=== PATIENT | male | born 1980 | race Asian ===

== ENCOUNTER 2024-01-20 15:30 | Inpatient (IN) ==
--- NOTE | 2024-01-20 16:43 | XRay Report ---
EXAM: Chest x-ray one-view not portable CLINICAL HISTORY: Rule out pneumonia, recent travel PRIORS: None TECHNIQUE: PA view chest FINDINGS: Lung volumes are diminished. Streaky opacity present in the right upper lobe with moderate right pleural effusion and possible hazy opacity at the right lung base. Small left pleural effusion also noted. Heart size is normal. No pneumothorax. Trachea is patent. Osseous structures demonstrate no acute abnormality. No radiopaque foreign body. IMPRESSION: Opacification in the right upper lobe, likely representing pneumonia, with bilateral pleural effusions. If clinically appropriate, follow-up chest radiograph could be considered in 6 to 8 weeks to ensure radiographic resolution. Electronically signed by Estephania Benitez 01-20-2024 4:43 PM
[2024-01-20 18:07] LABS: Hematocrit (blood only) 42.7 % (42.0-52.0); Hemoglobin 14.6 g/dl (14.0-18.0); Mean Corpuscular Hemoglobin 28.9 pg (25.0-34.0); Mean Corpuscular Hgb Conc 34.2 g/dL (32.0-36.0); Mean Corpuscular Volume 84.6 fL (80.0-100.0); Mean Platelet Volume 10.1 fL (9.4-12.4); Platelet Count 278 K/uL (130-400); RDW Coefficient of Variation 12.4 % (11.5-14.5); RDW Standard Deviation 38.2 fL (36.4-46.3); Red Blood Count 5.05 M/uL (4.70-6.10); White Blood Count 7.12 K/ul (4.8-10.8)
--- NOTE | 2024-01-20 18:16 | Emergency Department Note ---
Impression & Plan Pneumonia, Anasarca, GERA (acute kidney injury), Pleural effusion, Hypoalbuminemia ED Provider Note NAME: DAVE LAGUERRE AGE: 44 SEX: M : 1980 ARRIVES VIA: Walk-In INFORMANT: Patient, ED PROVIDER(S): Bobo Vidal DO CHIEF COMPLAINT: Edema HPI: The patient is a 44-year-old male who recently returned from a flight from [place]. He started noticing about 5 days ago that he was swelling. He noticed swelling first in his hands and his legs. He then noticed swelling on his abdomen. He noticed facial swelling as well. The symptoms wax and wane. They sometimes get better once he has been standing for a while. He is also noticed a dry cough. He went to see his family doctor. He had some laboratory and radiographic studies including Dopplers of the lower extremities. Reportedly these were negative for DVT but the patient had a chest x-ray that showed fluid on his lungs so he was sent to the emergency department for further evaluation. ROS: See above HPI for pertinent positives & negatives. A total of 10 systems reviewed and were otherwise negative. PAST MEDICAL HISTORY: See Below PAST SURGICAL HISTORY: See Below FAMILY HISTORY: See Below SOCIAL HISTORY: See Below HOME MEDICATIONS: See Below ALLERGIES: See Below VITALS: See Below PHYSICAL EXAMINATION: GENERAL: Patient is awake alert in no acute distress patient is resting comfortably and showing no signs of anxiety EYES: The conjunctivae are clear. The pupils are round and reactive. There is facial plethora noted. EARS, NOSE, MOUTH AND THROAT: The nose is without any evidence of any deformity. NECK: The neck is nontender and supple. RESPIRATORY: The breath sounds are noted at both bases. There were rales at both bases. There was mild tachypnea and conversational dyspnea. CARDIOVASCULAR: Tachycardic and regular heart sounds were noted to auscultation. There is no definite murmur. GASTROINTESTINAL: The abdomen is soft and mildly distended. There is no guarding or rigidity appreciated. MUSCULOSKELETAL/EXTREMITIES: There is no evidence of gross deformity full range of motion is noted in the hips and shoulders. SKIN: There is bilateral lower extremity edema noted. Pulses were symmetric in both feet. NEUROLOGIC: Patient is awake alert and oriented x3 MEDICAL DECISION MAKING: The patient is a 44-year-old male who presented to the emergency department for an evaluation of swelling. The patient recently returned from [place]. Ever since that time he started noticing swelling which was in his extremities as well as his torso and his face. The patient was found to have signs of pneumonia on chest x-ray. It is possible an underlying infectious process exists. This may also be affecting his kidneys. The patient was treated with antibiotics. I discussed the patient's laboratory and radiographic studies with him. [facility] also [facility] have agreed to evaluate the patient in the emergency department for further management and disposition. Triage Nursing notes reviewed. Prior medical records reviewed Vital Signs: reviewed and remarkable for elevated blood pressure. Differential diagnosis: Reactive airway disease, pneumonia, pneumothorax, COPD, CHF, infections, cardiac ischemia, pulmonary embolism, musculoskeletal, gastrointestinal, as well as other pathologies. ER treatment provided: See below Diagnostics interpreted by me: ECG: EKG was obtained in the emergency department. My interpretation is sinus tachycardia at 114 bpm. There is no ectopy. Nonspecific ST depression with T wave abnormalities were noted. No previous tracings available. Cardiac Monitoring: An order was placed for continuous cardiac monitoring. The monitor shows a rate of 105/min with sinus tachycardia. Laboratory studies: As stated above and show below. Imaging studies: See below. Radiographic imaging was reviewed by myself Consultation(s): I discussed this case with Dr. Miramontes who [facility]. Past Med/Surg History Problem List (Updated 01/21/24 @ 01:50 by Bobo Vidal DO) Hyponatremia Pneumonia (Acute) Hypoalbuminemia (Acute) HLD (hyperlipidemia) Pleural effusion (Acute) GERA (acute kidney injury) (Acute) Anasarca (Acute) Surgical History No pertinent past surgical history Social History Smoking Status: Former smoker Tobacco Type: Cigarettes Cigarettes Per Day: 1-4; Smoking End Date: over 20 years ago; Second Hand Exposure: No; Do You Dip or Chew Tobacco: No; Tobacco Cessation Education Requested by Patient: No Hx Alcohol Use: Yes Hx Substance Use: No Preferred Language: Mexican Communication Ability: Effective Communication Ability Comment: pt has accent but has good yemeni Heeler Required: No Beliefs That Will Affect Care: None Current Living Situation: Family Current Living Situation Comment: lives with family Feels Safe at Home: Yes Safety Concerns: Feels Safe At This Time Assistive Devices: Glasses Allergies Allergies Allergy/AdvReac Type Severity Reaction Status Date / Time No Known Allergies Allergy Verified 10/25/23 10:14 Home Meds Home Medications Medication Instructions Recorded Confirmed rosuvastatin 20 mg tablet mg PO 10/25/23 10/25/23 Previous Rx's Medication Instructions Recorded amoxicillin 875 mg tablet 875 mg PO BID #20 tabs 10/25/23 Results & Data (ED) Vital Signs Vital Signs - 24 hr 01/20/24 15:53 01/20/24 18:27 01/20/24 19:36 Temperature 36.8 C Temperature Source Temporal Artery Scan Pulse Rate 117 H 108 H Pulse Rate [Finger] 102 H Respiratory Rate 20 22 Respiratory Effort / Characteristics Non-Labored Respiratory Depth Normal Blood Pressure 145/113 H Blood Pressure [Right Arm] 165/84 H Blood Pressure Mean 123 Blood Pressure Mean [Right Arm] 111 Pulse Oximetry 99 93 Oxygen Delivery Method Room Air Room Air Sepsis Recent Fever Within 48 Hours No Sepsis New/Unexplained Change in Mental Status N/A Sepsis Action Taken by Nursing No Action Required 01/20/24 21:17 Temperature Temperature Source Pulse Rate Pulse Rate [Finger] 102 H Respiratory Rate 22 Respiratory Effort / Characteristics Respiratory Depth Blood Pressure Blood Pressure [Right Arm] 166/95 H Blood Pressure Mean Blood Pressure Mean [Right Arm] 118 Pulse Oximetry 92 Oxygen Delivery Method Room Air Sepsis Recent Fever Within 48 Hours Sepsis New/Unexplained Change in Mental Status Sepsis Action Taken by Long-Term Medications Current Medication List: was personally reviewed by me Laboratory Data Attestation: I reviewed the patient's lab results. 01/20/24 17:40 01/20/24 17:40 Lab Results 01/20/24 01/20/24 Range/Units 17:40 18:54 WBC 7.12 (4.8-10.8) K/ul RBC 5.05 (4.70-6.10) M/uL Hgb 14.6 (14.0-18.0) g/dl Hct 42.7 (42.0-52.0) % MCV 84.6 (80.0-100.0) fL MCH 28.9 (25.0-34.0) pg MCHC 34.2 (32.0-36.0) g/dL RDW Std Deviation 38.2 (36.4-46.3) fL RDW Coeff of Sachi 12.4 (11.5-14.5) % Plt Count 278 (130-400) K/uL MPV 10.1 (9.4-12.4) fL Immature Gran % (Auto) 0.1 % Neut % (Auto) 90.4 % Lymph % (Auto) 5.6 % [place] % (Auto) 3.9 % Eos % (Auto) 0.0 % Baso % (Auto) 0.0 % Neut # (Auto) 6.43 (1.40-6.50) K/uL Lymph # (Auto) 0.40 L (1.20-3.40) K/uL [place] # (Auto) 0.28 (0.11-0.59) K/uL Eos # (Auto) 0.00 (0.00-0.50) K/uL Baso # (Auto) 0.00 (0.00-0.20) K/uL Immature Gran # (Auto) 0.01 (0.01-0.20) K/uL PT 10.2 (9.0-12.0) Seconds INR 0.9 (0.9-1.1) VBG pH 7.38 (7.36-7.41) VBG pCO2 38 (38-50) mmHg VBG pO2 37 mmHg VBG HCO3 23 mmol/L VBG O2 Saturation 65.3 % VBG Base Excess -2.3 mEq/L Sodium 135 L (136-145) mmol/L Potassium 4.0 (3.5-5.1) mmol/L Chloride 106 (98-107) mmol/L Carbon Dioxide 25 (21-32) mmol/L Anion Gap 4 (3-11) BUN 17 (6-23) mg/dl Creatinine 1.95 H (0.6-1.4) mg/dl Est Cr Clr Drug Dosing 55.1 ml/min eGFR 42.97 BUN/Creatinine Ratio 8.7 L (10-20) Glucose 89 (70-99(Fasting)) mg/dl Calcium 7.0 L (8.6-10.3) mg/dl Total Bilirubin 0.2 (0.2-1.0) mg/dl AST 42 H (13-39) U/L ALT 21 (7-52) U/L Alkaline Phosphatase 79 (34-104) U/L Troponin I High Sens 30.3 H (0-20) pg/ml C-Reactive Protein 5.50 H (0-0.5) mg/dl B-Natriuretic Peptide 33 (0-100) pg/ml Total Protein 3.9 L (6.0-8.3) gm/dl Albumin 1.6 L (3.4-5.0) gm/dl Globulin 2.3 L (2.5-4.0) gm/dl Albumin/Globulin Ratio 0.7 L (0.9-2) Procalcitonin 0.64 H (0-0.5) ng/ml SARS-CoV-2 (PCR) NEGATIVE (Negative) Influenza Type A (PCR) Negative (Neg) Influenza Type B (PCR) Negative (Neg) RSV (RT-PCR) Negative (Neg) Administered Medications Discontinued Medications Ceftriaxone Sodium (Rocephin) 2,000 mg in 50 mls @ 100 mls/hr IV NOW STA Stop: 01/20/24 18:32 Last Infusion: 01/20/24 20:02 Dose: Infused Documented By: Admin: 01/20/24 19:35 Dose: 100 mls/hr Documented By: JESSIE Ioversol (Optiray 320 125ml) 115 ml IV ONCE ONE Stop: 01/20/24 19:08 Last Admin: 01/20/24 19:08 Dose: 115 ml Documented By: EVA Imaging Data Attestation: I personally reviewed and interpreted this imaging study as follows: My Impression: 1 view chest x-ray was obtained in the emergency department. My interpretation is bilateral pleural effusions, final report below. CT of the chest was obtained in the emergency department. My interpretation is bilateral pleural effusions, there is no free air, final report below. Radiologist's Impression: Chest X-Ray 01/20/24 16:00 EXAM: Chest x-ray one-view not portable CLINICAL HISTORY: Rule out pneumonia, recent travel PRIORS: None TECHNIQUE: PA view chest FINDINGS: Lung volumes are diminished. Streaky opacity present in the right upper lobe with moderate right pleural effusion and possible hazy opacity at the right lung base. Small left pleural effusion also noted. Heart size is normal. No pneumothorax. Trachea is patent. Osseous structures demonstrate no acute abnormality. No radiopaque foreign body. IMPRESSION: Opacification in the right upper lobe, likely representing pneumonia, with bilateral pleural effusions. If clinically appropriate, follow-up chest radiograph could be considered in 6 to 8 weeks to ensure radiographic resolution. Electronically signed by Estephania Benitez 01-20-2024 4:43 PM Abdomen/Pelvis CT 01/20/24 17:58 Exam(s): CT ABDOMEN + PELVIS With Contrast IV Amt: 115 cc opti 320 EXAM: CT Abdomen and Pelvis With Intravenous Contrast CLINICAL HISTORY: Reason for exam: edema. TECHNIQUE: Axial computed tomography images of the abdomen and pelvis with intravenous contrast. CTDI is 24.05 mGy and DLP is 788.8 mGy-cm. Automated exposure control was utilized for the study. A dose lowering technique was utilized adhering to the principles of ALARA. CONTRAST: Patient received 115 cc Optiray 320 of IV contrast COMPARISON: Ultrasound from September 16, 2023 FINDINGS: Lung bases: See below. Pleural space: Moderate bilateral pleural effusions layering posteriorly measuring 5.7 cm on the left and 8.5 cm on the right with bibasilar atelectasis. ABDOMEN: Liver: The liver measures 15.5 cm with normal appearance. Gallbladder and bile ducts: Unremarkable. No calcified stones. No ductal dilation. Pancreas: Unremarkable. No mass. No ductal dilation. Spleen: Unremarkable. No splenomegaly. Adrenals: Unremarkable. No mass. Kidneys and ureters: Unremarkable. No solid mass. No hydronephrosis. Stomach and bowel: See below. PELVIS: Appendix: The appendix is normal. Bowel loops are nondilated. There are a few scattered gas fluid levels within nondilated large and small bowel suggest a mild ileus. No focal bowel wall inflammation is identified. Bladder: Unremarkable. No mass. Reproductive: Unremarkable as visualized. ABDOMEN and PELVIS: Intraperitoneal space: There is a small amount of free fluid throughout the abdomen and pelvis measuring 1 cm thick adjacent to the liver and 4 cm thick in the pelvis. No free air. Bones/joints: No acute fracture. No dislocation. Soft tissues: Unremarkable. Vasculature: The portal vein is patent and nondilated measuring 14 mm. Lymph nodes: Unremarkable. No enlarged lymph nodes. IMPRESSION: 1. There is a small amount of free fluid throughout the abdomen and pelvis measuring 1 cm thick adjacent to the liver and 4 cm thick in the pelvis. 2. The appendix is normal. Bowel loops are nondilated. There are a few scattered gas fluid levels within nondilated large and small bowel suggest a mild ileus. No focal bowel wall inflammation is identified. 3. Moderate bilateral pleural effusions layering posteriorly measuring 5. 7 cm on the left and 8.5 cm on the right with bibasilar atelectasis. Electronically signed by: Jerome Ramsey MD 01/20/24 21:14 PM Chest CTA 01/20/24 17:58 Exam(s): CTA CHEST IV Amt: 115 ml optiray 320 EXAM: CT Angiography Chest With Intravenous Contrast CLINICAL HISTORY: Reason for exam: PE. TECHNIQUE: Axial computed tomographic angiography images of the chest with intravenous contrast. CTDI is 11.87 mGy and DLP is 5.94 mGy-cm. Automated exposure control was utilized for the study. A dose lowering technique was utilized adhering to the principles of ALARA. MIP reconstructed images were created and reviewed. COMPARISON: Chest x-ray from January 20, 2024 FINDINGS: Pulmonary arteries: Unremarkable. No pulmonary embolism. 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 The remainder the thoracic aorta is nondilated. There is no aneurysm or dissection. Lungs: See below. Pleural space: Moderate bilateral pleural effusions layering posteriorly measuring 6 cm on the left and 8.5 cm on the right. There is associated bibasilar atelectasis as well as streaky infiltrate in the right middle lobe suspicious for pneumonia. Heart: Unremarkable. No cardiomegaly. No significant pericardial effusion. No evidence of RV dysfunction. Bones/joints: No acute fracture. No dislocation. Soft tissues: Unremarkable. Lymph nodes: Unremarkable. No enlarged lymph nodes. Intraperitoneal space: Small amount of free fluid is seen within the upper abdomen measuring 1 cm thick anterior to the liver. IMPRESSION: 1. Moderate bilateral pleural effusions layering posteriorly measuring 6 cm on the left and 8.5 cm on the right. There is associated bibasilar atelectasis as well as streaky infiltrate in the right middle lobe suspicious for pneumonia. 2. Small amount of free fluid is seen within the upper abdomen measuring 1 cm thick anterior to the liver. 3. 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 The remainder the thoracic aorta is nondilated. There is no aneurysm or dissection. No evidence of pulmonary embolism. Electronically signed by: Jerome Ramsey MD 01/20/24 20:53 PM Discharge Plan Visit Data Chief Complaint: Swelling/Edema to Extremity Stated Complaint: FLUID IN LUNGS, SWELLING ED Provider: Bobo Vidal Discharge Problem: Pneumonia, Anasarca, GERA (acute kidney injury), Pleural effusion, Hypoalbuminemia Patient Disposition: Admitted As Inpatient Discharge Instructions Interventions: ED Discharge Assessment Last Done: 01/20/24 22:49 Discharge Problem: Pneumonia Qualifiers: Pneumonia type: due to unspecified organism Laterality: unspecified laterality Lung location: unspecified part of lung Qualified Code(s): J18.9 - Pneumonia, unspecified organism
[2024-01-20 18:20] LABS: Albumin Globulin Ratio 0.7 (0.9-2); Albumin Level 1.6 gm/dl (3.4-5.0); BUN Creatinine Ratio 8.7 (10-20); Bilirubin,Total 0.2 mg/dl (0.2-1.0); Creatinine Clr Calc Pharmacy 55.1 ml/min; Globulin 2.3 gm/dl (2.5-4.0); Total Protein 3.9 gm/dl (6.0-8.3)
[2024-01-20 18:25] LABS: Troponin I High Sensitivity 30.3 pg/ml (0-20)
[2024-01-20 18:32] LABS: Immature Granulocytes # (auto) 0.01 K/uL (0.01-0.20); Immature Granulocytes % (auto) 0.1 %; Lymphocytes % (auto) 5.6 %; Monocytes # (auto) 0.28 K/uL (0.11-0.59); Monocytes % (auto) 3.9 %; Neutrophils # (auto) 6.43 K/uL (1.40-6.50); Neutrophils % (auto) 90.4 %
[2024-01-20 18:46] LABS: C Reactive Protein 5.5 mg/dl (0-0.5)
[2024-01-20 19:01] LABS: Base Excess VBG -2.3 mEq/L; HCO3 VBG 23 mmol/L; Oxygen Saturation VBG 65.3 %; PCO2 VBG 38 mmHg (38-50); PO2 VBG 37 mmHg; pH VBG 7.38 (7.36-7.41)
[2024-01-20 19:07] LABS: Influenza A virus by PCR Negative (Neg); Influenza B virus by PCR Negative (Neg); RSV by PCR Negative (Neg); SARS CoV2 RNA(COVID-19) Ceph NEGATIVE (Negative)
[2024-01-20] MEDS: OPTIRAY 320 125ml IV ONE (19:08)
[2024-01-20] MEDS: cefTRIAXone SODIUM 2,000 MG/50 ML BAG IV STA (19:35)
--- NOTE | 2024-01-20 20:54 | CT Scan Report ---
Exam(s): CTA CHEST IV Amt: 115 ml optiray 320 EXAM: CT Angiography Chest With Intravenous Contrast CLINICAL HISTORY: Reason for exam: PE. TECHNIQUE: Axial computed tomographic angiography images of the chest with intravenous contrast. CTDI is 11.87 mGy and DLP is 5.94 mGy-cm. Automated exposure control was utilized for the study. A dose lowering technique was utilized adhering to the principles of ALARA. MIP reconstructed images were created and reviewed. COMPARISON: Chest x-ray from January 20, 2024 FINDINGS: Pulmonary arteries: Unremarkable. No pulmonary embolism. 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 The remainder the thoracic aorta is nondilated. There is no aneurysm or dissection. Lungs: See below. Pleural space: Moderate bilateral pleural effusions layering posteriorly measuring 6 cm on the left and 8.5 cm on the right. There is associated bibasilar atelectasis as well as streaky infiltrate in the right middle lobe suspicious for pneumonia. Heart: Unremarkable. No cardiomegaly. No significant pericardial effusion. No evidence of RV dysfunction. Bones/joints: No acute fracture. No dislocation. Soft tissues: Unremarkable. Lymph nodes: Unremarkable. No enlarged lymph nodes. Intraperitoneal space: Small amount of free fluid is seen within the upper abdomen measuring 1 cm thick anterior to the liver. IMPRESSION: 1. Moderate bilateral pleural effusions layering posteriorly measuring 6 cm on the left and 8.5 cm on the right. There is associated bibasilar atelectasis as well as streaky infiltrate in the right middle lobe suspicious for pneumonia. 2. Small amount of free fluid is seen within the upper abdomen measuring 1 cm thick anterior to the liver. 3. 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 The remainder the thoracic aorta is nondilated. There is no aneurysm or dissection. No evidence of pulmonary embolism. Electronically signed by: Jerome Ramsey MD 01/20/24 20:53 PM
--- NOTE | 2024-01-20 21:15 | CT Scan Report ---
Exam(s): CT ABDOMEN + PELVIS With Contrast IV Amt: 115 cc opti 320 EXAM: CT Abdomen and Pelvis With Intravenous Contrast CLINICAL HISTORY: Reason for exam: edema. TECHNIQUE: Axial computed tomography images of the abdomen and pelvis with intravenous contrast. CTDI is 24.05 mGy and DLP is 788.8 mGy-cm. Automated exposure control was utilized for the study. A dose lowering technique was utilized adhering to the principles of ALARA. CONTRAST: Patient received 115 cc Optiray 320 of IV contrast COMPARISON: Ultrasound from September 16, 2023 FINDINGS: Lung bases: See below. Pleural space: Moderate bilateral pleural effusions layering posteriorly measuring 5.7 cm on the left and 8.5 cm on the right with bibasilar atelectasis. ABDOMEN: Liver: The liver measures 15.5 cm with normal appearance. Gallbladder and bile ducts: Unremarkable. No calcified stones. No ductal dilation. Pancreas: Unremarkable. No mass. No ductal dilation. Spleen: Unremarkable. No splenomegaly. Adrenals: Unremarkable. No mass. Kidneys and ureters: Unremarkable. No solid mass. No hydronephrosis. Stomach and bowel: See below. PELVIS: Appendix: The appendix is normal. Bowel loops are nondilated. There are a few scattered gas fluid levels within nondilated large and small bowel suggest a mild ileus. No focal bowel wall inflammation is identified. Bladder: Unremarkable. No mass. Reproductive: Unremarkable as visualized. ABDOMEN and PELVIS: Intraperitoneal space: There is a small amount of free fluid throughout the abdomen and pelvis measuring 1 cm thick adjacent to the liver and 4 cm thick in the pelvis. No free air. Bones/joints: No acute fracture. No dislocation. Soft tissues: Unremarkable. Vasculature: The portal vein is patent and nondilated measuring 14 mm. Lymph nodes: Unremarkable. No enlarged lymph nodes. IMPRESSION: 1. There is a small amount of free fluid throughout the abdomen and pelvis measuring 1 cm thick adjacent to the liver and 4 cm thick in the pelvis. 2. The appendix is normal. Bowel loops are nondilated. There are a few scattered gas fluid levels within nondilated large and small bowel suggest a mild ileus. No focal bowel wall inflammation is identified. 3. Moderate bilateral pleural effusions layering posteriorly measuring 5. 7 cm on the left and 8.5 cm on the right with bibasilar atelectasis. Electronically signed by: Jerome Ramsey MD 01/20/24 21:14 PM
[2024-01-20 21:45] LABS: INR 0.9 (0.9-1.1); Prothrombin Time 10.2 Seconds (9.0-12.0)
--- NOTE | 2024-01-20 22:14 | History & Physical Report ---
Date of Service January 20, 2024 Assessment & Plan (1) Anasarca: (2) GERA (acute kidney injury): (3) Pleural effusion: (4) HLD (hyperlipidemia): (5) Hypoalbuminemia: (6) Pneumonia: (7) Hyponatremia: Plan #Anasarca/Pleural Effusion/Hypoalbuminemia differential is broad to include infection, nephritic/nephrotic syndromes consider diagnostic thoracentesis will order renal US, renal artery duplex UA ordered 24 hr urine albumin & creatinine ordered follow laboratories #GERA Cr was 1.17 in August 2023 Up-trending over last 24hrs (was 1.66 on labs with [facility] yesterday) etiology unclear #Pneumonia CXR and CTA suggestive of RML pneumonia s/p one dose of CTX in ED will continue CTX #Hyponatremia noted on outpatient labs and redemonstrated on ED labs encourage good PO intake serial labs #HLD Saw cardiology 12/20/23 Holding Crestor in setting of acute illness - per cardiology in [facility] note History of Present Illness Primary Care Provider: Romina Carroll, 44 yo male PMHx HLD on Crestor admitted with progressive soft tissue edema, SOB, dyspnea on exertion and fever. Symptoms initially began 01/02/24 after arriving in [place] for vacation. The swelling was minor in the b/l LE at that time. Since returning from [place] 01/17/24 edema has been progressive and now involves the entirely of b/l LE, arms, and face. He was seen by [facility] cardiology yesterday for follow up of his HLD and when LE edema was noted, b/l venous dopplers were performed with were negative for DVT. He had labs performed at that time, as well. They were notable for Na 133, Ca 7.4, Mg 2.0, ESR 48, and Cr of 1.66 (Cr was 1.17 in August 2023). He has no known history of cardiac, pulmonary, or renal disease. Patient was treated for GAS in 10/2023 and was reportedly admitted to [facility] around the same time for b/l lower lobe PNA. As his symptoms have worsened over the last several days, he has had decreased oral intake to both food and fluids. Today he reports significant fatigue, SOB, cough, pleuritic chest pain with cough. Denies any cardiac chest pain, abdominal pain, N/V/D, changes in urine. ED Course: CTX CBC WNL CMP significant for Na 135, Cr 1.95, BUN/Cr 8.7, CRP 5.5, Albumin 1.6, procal 0.64 CTA Chest: no PE, +b/l pleural effusion, likely RML infiltrate CTAP: sm free fluid perihepatic and pelvic, otherwise largely unremarkable Blood Cx drawn Allergies Allergy/AdvReac Type Severity Reaction Status Date / Time No Known Allergies Allergy Verified 10/25/23 10:14 Home Medications Medication Instructions Recorded Confirmed Type amoxicillin 875 mg tablet 875 mg PO BID #20 tabs 10/25/23 10/25/23 Rx rosuvastatin 20 mg tablet mg PO 10/25/23 10/25/23 History Past Med/Surg History Problem List (Updated 01/21/24 @ 01:50 by Bobo Vidal DO) Hyponatremia Pneumonia (Acute) Hypoalbuminemia (Acute) HLD (hyperlipidemia) Pleural effusion (Acute) GERA (acute kidney injury) (Acute) Anasarca (Acute) Surgical History No pertinent past surgical history Social History Smoking Status: Former smoker Tobacco Type: Cigarettes Cigarettes Per Day: 1-4; Smoking End Date: over 20 years ago; Second Hand Exposure: No; Do You Dip or Chew Tobacco: No; Tobacco Cessation Education Requested by Patient: No Hx Alcohol Use: Yes Hx Substance Use: No Preferred Language: [place]i Communication Ability: Effective Communication Ability Comment: pt has accent but has good tamazight Call Or Contact Centre Manager Required: No Beliefs That Will Affect Care: None Current Living Situation: Family Current Living Situation Comment: lives with family Feels Safe at Home: Yes Safety Concerns: Feels Safe At This Time Assistive Devices: Glasses Review of Systems Review of Systems: reviewed, per HPI Physical Exam Physical Exam: Constitutional: ill-appearing, no acute distress HEENT: NCAT, b/ conjunctival injection CV: mild tachycardia, regular rhythm, no murmur appreciated, extremities well- perfused, +LE edema Resp: diminished breath sounds in b/l lung bases R>L, +end expiratory wheeze, no obvious6 increase work of breathing, not on supplemental oxygen GI: soft, nondistended, nontender, BS normoactive, no fluid wave MSK: no gross deformities appreciated Skin: warm, dry, no rash appreciated, soft tissue edema noted in b/l UE and LE Neuro: alert, oriented, no focal neurologic deficit appreciated Results & Data Results & Data Vital Signs (Past 12 Hours) Vital Signs Temp Pulse Pulse Resp BP BP Pulse Ox 01/20/24 21:17 102 H 22 166/95 H 92 01/20/24 19:36 102 H 22 165/84 H 93 01/20/24 18:27 108 H 01/20/24 15:53 36.8 C 117 H 20 145/113 H 99 O2 Del Method 01/20/24 21:17 Room Air 01/20/24 19:36 Room Air 01/20/24 18:27 01/20/24 15:53 Room Air Supervising Physician Co-Signing Physician Notes Attending addendum: I have physically seen this patient, have supervised the medical residents activities, and agree with the H&P unless as otherwise noted. Assessment and Plan: Anasarca/bilateral pleural effusions, right greater than left/ascites N.p.o. after midnight Patient is most symptomatic with dyspnea on exertion secondary to pleural effusions Ordered a coagulation profile Could consider diagnostic/therapeutic thoracentesis if desired Patient with significant hypoalbuminemia, likely third spacing contributing significantly to overall fluid overload Patient reports a recent trip to [place], but no known exposures to contribute to his symptoms Hypoalbuminemia- Albumin was 2.6 in August, and is now 1.6 on admission laboratories Includes but not limited to: Nephrotic syndrome, IgA nephropathy, post strep glomerulonephritis. Group A strep infection noted on 10/25/2023 24-hour urine collection for protein and creatinine clearance Consult nephrology Acute kidney injury superimposed on CKD- Baseline creatinine was 1.17 in August Creatinine had worsened to 1.66 in outpatient records Creatinine 1.[address] scan of abdomen and pelvis notes ascitic fluid, without comment on kidney structure Order ultrasound of kidneys, and renal duplex Resident Activity Tracking Resident Involvement: Resident Care Provided Care Provided: Adult [facility]
[2024-01-20 23:51] LABS: Appearance Urine Cloudy (Clear); Bacteria Urine Automated None Seen (None Seen); Bilirubin Urine Negative (Negative); Blood Urine 3+ (Negative); Cast Urine Automated >20 /lpf (0-2); Color Urine Yellow; Epithelial Cell Urine Auto 0-2 /hpf (0-2); Glucose Urine UA Negative (Negative); Ketones Urine 1+ (Negative); Leukocyte Esterase Urine Negative (Negative); Nitrite Urine Negative (Negative); Protein Urine 4+ (Negative); RBC Urine Automated >20 /hpf (0-2); Specific Gravity Urine > 1.045 (1.000-1.030); Urobilinogen Urine Negative (Negative); WBC Urine Automated 0-5 /hpf (0-5)
[2024-01-21] MEDS ORDERED: ACETAMINOPHEN 325 MG TAB PO PRN (00:50)
[2024-01-21] MEDS ORDERED: MAGNESIUM HYDROXIDE SUSP 30 ML UDC PO PRN (00:50)
[2024-01-21] MEDS ORDERED: POLYETHYLENE (MIRALAX) 17 GM PACK PO PRN (00:50)
[2024-01-21] MEDS ORDERED: ONDANSETRON INJ 2 MG/ML 2 ML VIAL IV PRN (00:50)
[2024-01-21] MEDS ORDERED: ALUMINUM/MAGNESIUM SUSP 30 ML UDC PO PRN (00:50)
[2024-01-21 05:55] LABS: Basophils # (auto) 0.01 K/uL (0.00-0.20); Basophils % (auto) 0.2 %; Hematocrit (blood only) 40.6 % (42.0-52.0); Immature Granulocytes # (auto) 0.02 K/uL (0.01-0.20); Immature Granulocytes % (auto) 0.3 %; Lymphocytes # (auto) 0.88 K/uL (1.20-3.40); Lymphocytes % (auto) 14.3 %; Mean Corpuscular Hgb Conc 34.5 g/dL (32.0-36.0); Mean Corpuscular Volume 84.2 fL (80.0-100.0); Mean Platelet Volume 10.7 fL (9.4-12.4); Monocytes # (auto) 0.39 K/uL (0.11-0.59); Monocytes % (auto) 6.4 %; Neutrophils # (auto) 4.84 K/uL (1.40-6.50); Neutrophils % (auto) 78.8 %; Platelet Count 273 K/uL (130-400); RDW Coefficient of Variation 12.3 % (11.5-14.5); RDW Standard Deviation 37.7 fL (36.4-46.3); Red Blood Count 4.82 M/uL (4.70-6.10); White Blood Count 6.14 K/ul (4.8-10.8)
[2024-01-21 06:12] LABS: Albumin Globulin Ratio 0.8 (0.9-2); Albumin Level 1.6 gm/dl (3.4-5.0); Bilirubin,Total 0.2 mg/dl (0.2-1.0); Calcium 6.6 mg/dl (8.6-10.3); Creatinine Clr Calc Pharmacy 56.2 ml/min; Globulin 2.1 gm/dl (2.5-4.0); Potassium 3.5 mmol/L (3.5-5.1); Total Protein 3.7 gm/dl (6.0-8.3)
--- NOTE | 2024-01-21 06:50 | Billing Data ---
Date of Service January 21, 2024 Coding Level of Care Code 99042 INT INP/OBS CARE
--- NOTE | 2024-01-21 06:51 | Billing Data ---
Date of Service January 21, 2024 Coding Level of Care Code 06859 INT INP/OBS CARE
--- NOTE | 2024-01-21 07:05 | Hospitalist Progress Note ---
Date of Service January 21, 2024 Assessment & Plan (1) Glomerulonephritis: Plan: suspicion based on UA with 4+ protein, 3+ blood, low serum albumen, Strep pharyngitis 2-3mos ago, and current pneumonia - follow antibody and complement labs ordered by branch director, Dr. Aggarwal - follow nephro notes Lasix for fluid overload Prednisone 60mg qAM for suspected glomerulonephropathy (2) Anasarca: Plan: differential is broad to include infection, nephritic/nephrotic syndromes - vital signs stable, WBCs normal - Creatinine 1.66; UA 4+ protein, 3+ blood, no bacteria or leuks Renal artery duplex: unremarkable Renal US: Slightly increased renal parenchymal echogenicity and heterogeneous appearance of both kidneys 24 hr urine albumin & creatinine ordered Lasix ordered for fluid overload (3) GERA (acute kidney injury): Plan: Cr was 1.17 in August 2023 -> 1.66 on 01/20/24 - suspecting a glomerulonephritis (see #1) - antibody and complement labs pending Prednisone for suspected glomerulonephropathy (4) Pleural effusion: Plan: likely 2/2 albumin wasting via kidney excretion - Lasix for fluid overload (5) Pneumonia: Plan: CXR and CTA suggestive of RML pneumonia, afebrile with normal WBC count - will continue CTX for now - pending sputum and blood cultures - CBC qAM (6) Hypoalbuminemia: Plan: differential is broad to include infection, nephritic/nephrotic syndromes UA: 4+ protein, serum albumin 1.6 (low) 24 hr urine albumin & creatinine ordered - CMP qAM (7) Hyponatremia: Plan: likely due to fluid overload status - free water restriction - Lasix for diuresis - CMP qAM (8) HLD (hyperlipidemia): Plan: chronic, holding Crestor in setting of acute illness Plan if antibody and complement labs still unclear, likely transfer to facility that can perform renal biopsy for definitive diagnosis Admission and Anticipated Discharge Date Admission Date: January 20, 2024 Supervising Physician Co-Signing Physician Notes I personally examined the patient and verified all muniz points of history and exam, discussed case, and agree with decision making with Dr Pete Feeling okay. Updated and outlined working diagnoses/plan. Discussed with nephrologyinput greatly appreciated. Vitals noted, in general he is awake and alert pleasant no distress. HEENT normocephalic atraumatic mucous membranes moist. Breathing unlabored no accessory muscle use good effort. Skin shows no rashes no pallor or icterus. Neuro without focal deficits. Glomerulonephritis/nephrotic syndromemost likely seems to be immune mediated either postinfectious or autoimmuneserologies pending. Discussed with patient about possible kidney biopsy and he was amenablebut after discussion with nephrologynot urgently needed at this time (and not able to be done at this facility so we were working towards coordinating transfer to a facility that couldbut after discussion with nephrology we will hold off on this for now. Lasix and follow, start corticosteroids. Otherwise as above. Possible pneumoniastreaky density on chest CT that is not contiguous to effusions and not a lot of symptomsmay simply be resolving findings from his pneumonia but this was about 2 months agogiven that we will be having him on high-dose corticosteroidstreating as though it may be of true clinical significance until proven otherwise (ceftriaxone) continue to follow clinically. DVT prophylaxisambulation, and since nephrotic syndrome add lovenox Subjective Patient was seen and evaluated at bedside, lying in bed appearing in mild distress. States he was able to sleep okay. This morning, endorses he is feeling tired. Denies any pain at this time. States he has been coughing and there is some yellow sputum production but no blood as far as he has noticed. Endorses he has urinated 3 times overnight, which he describes as "dark yellow", denies any blood by appearance, denies burning or pain with urination. Believes it is darker since he has not been drinking as much water has he was before he came to the hospital. Confirms that he had and treated Strep throat in October 2023 with resolution of symptoms. Denies ever having this significant swelling before, denies ever having any kidney issues in the past. Endorses when he was in [place] last month from 01/02/24 - 01/17/24, he had 3- 4 alcoholic beverages, which he states is more than usual for him. Otherwise, denies any particular illness, medications/drugs, needle use, trauma, animal bites, or insect bites while in [place]. Denies current fever, chills, sweats, visual changes, hearing changes, hemoptysis, SOB, chest pain, abdominal pain, LE pain, LE tingling/numbness. Review of Systems Review of Systems: per HPI Physical Exam Physical Exam: Constitutional: A&Ox4, appearing in mild distress, nontoxic in appearance HEENT: NC/AT, b/l conjunctival injection, EOM intact, anicteric sclerae Cardiovascular: RRR, +s1/s2, no m/r/g - 2+ radial and carotid pulses, 2+ poste rior tibial and dorsalis pedis pulses Resp: slightly diminished breath sounds in b/l lung bases R>L, otherwise clear to auscultation, no wheezes/rales/rhonchi GI: abdomen soft, nondistended, nontender to palpation, BS normoactive, no fluid wave MSK: 5/5 strength in all extremities Skin: warm, dry, no rashes; b/l 3+ pitting edema b/l LE up to proximal lower legs, no significant pitting in b/l UE Neuro: no facial droop, speech intact, no sensory deficits Results & Data Results & Data Vital Signs (Past 12 Hours) Vital Signs Temp Pulse Pulse Resp BP BP Pulse Ox 01/21/24 03:30 37.4 C 99 H 16 145/78 H 93 01/20/24 23:26 105 H 01/20/24 23:26 01/20/24 23:26 36.8 C 108 H 17 144/92 H 94 01/20/24 21:17 102 H 22 166/95 H 92 01/20/24 19:36 102 H 22 165/84 H 93 O2 Del Method 01/21/24 03:30 Room Air 01/20/24 23:26 01/20/24 23:26 Room Air 01/20/24 23:26 Room Air 01/20/24 21:17 Room Air 01/20/24 19:36 Room Air Laboratory Results Abnormal lab results 01/20/24 01/20/24 01/20/24 Range/Units 17:40 18:54 22:28 Hct (42.0-52.0) % Lymph # (Auto) 0.40 L (1.20-3.40) K/uL APTT (21-31) Seconds Sodium 135 L (136-145) mmol/L Creatinine 1.95 H (0.6-1.4) mg/dl BUN/Creatinine Ratio 8.7 L (10-20) Calcium 7.0 L (8.6-10.3) mg/dl AST 42 H (13-39) U/L Troponin I High Sens 30.3 H (0-20) pg/ml C-Reactive Protein 5.50 H (0-0.5) mg/dl Total Protein 3.9 L (6.0-8.3) gm/dl Albumin 1.6 L (3.4-5.0) gm/dl Globulin 2.3 L (2.5-4.0) gm/dl Albumin/Globulin Ratio 0.7 L (0.9-2) Procalcitonin 0.64 H (0-0.5) ng/ml Urine Appearance Cloudy A (Clear) Ur Specific [place] > 1.045 H (1.000-1.030) Urine Protein 4+ H (Negative) Urine Ketones 1+ H (Negative) Urine Blood 3+ H (Negative) Urine RBC (Auto) >20 H (0-2) /hpf U Hyaline Cast (Auto) >20 H (0-2) /lpf 01/21/24 01/21/24 Range/Units 04:58 08:48 Hct 40.6 L (42.0-52.0) % Lymph # (Auto) 0.88 L (1.20-3.40) K/uL APTT 35 H (21-31) Seconds Sodium 131 L (136-145) mmol/L Creatinine 1.91 H (0.6-1.4) mg/dl BUN/Creatinine Ratio (10-20) Calcium 6.6 L (8.6-10.3) mg/dl AST (13-39) U/L Troponin I High Sens (0-20) pg/ml C-Reactive Protein (0-0.5) mg/dl Total Protein 3.7 L (6.0-8.3) gm/dl Albumin 1.6 L (3.4-5.0) gm/dl Globulin 2.1 L (2.5-4.0) gm/dl Albumin/Globulin Ratio 0.8 L (0.9-2) Procalcitonin (0-0.5) ng/ml Urine Appearance (Clear) Ur Specific [place] (1.000-1.030) Urine Protein (Negative) Urine Ketones (Negative) Urine Blood (Negative) Urine RBC (Auto) (0-2) /hpf U Hyaline Cast (Auto) (0-2) /lpf Resident Activity Tracking Resident Involvement: Resident Care Provided Care Provided: Adult Hospital Medicine (5) Pneumonia Laterality: unspecified laterality Lung location: unspecified part of lung Pneumonia type: due to unspecified organism Qualified Code(s): J18.9 - Pneumonia, unspecified organism
--- NOTE | 2024-01-21 07:22 | Ultrasound Report ---
EXAM: US renal/blad retro comp CLINICAL HISTORY: HX: prev CT 01/20/24. GERA, RT KID: 11.9 X 5.3 X 5.5 cm. No hydro. ?Hetero appearance. LT KID: 11.3 x 7.3 x 5.1 cm. No hydro. ?hetero appearance. Trace perinephric fluid. Bladder: jets nonvis during eval. Incidental finding: moderate amount of ascites vis in pelvis. Bialteral pleural effusions. TECHNIQUE: A renal ultrasound was performed using grayscale imaging and duplex. COMPARISON: Comparison is made with prior imaging studies dated 01/20/2024. FINDINGS: Right Kidney: The right kidney measures 11.9 x 5.3 x 5.5 cm. No cyst, hydronephrosis, or calculi were identified. Renal parenchymal echogenicity is slightly increased, with a heterogeneous appearance. Cortical thickness is within normal limits. Renal pelvis is within normal limits. Left Kidney: The left kidney measures 11.3 x 7.3 x 5.1 cm. No cyst, hydronephrosis, or calculi were identified. Renal parenchymal echogenicity is slightly increased, with a heterogeneous appearance. Trace perinephric fluid is noted. Cortical thickness is within normal limits. Renal pelvis is within normal limits. Urinary Bladder: The urinary bladder is normally distended with normal wall thickness. No calculi or mass are noted. Bilateral ureteral jets were not visualized during the evaluation. Incidental Findings: A moderate amount of ascites is visible in the pelvis. Bilateral pleural effusions are also noted. As per images. IMPRESSION: 1. Slightly increased renal parenchymal echogenicity and heterogeneous appearance of both kidneys. This could be due to acute kidney injury. Need clinical and lab correlation. 2. Trace perinephric fluid around the left kidney. 3. Moderate ascites and bilateral pleural effusions. 4. No significant interval changes compared to prior recent ultrasound duplex renal dated on 01/20/2024 regarding both kidneys. Electronically signed by Crow Rush 01-21-2024 07:22 AM
--- NOTE | 2024-01-21 08:38 | Nephrology Consultation ---
Date of Consultation January 21, 2024 Assessment & Plan (1) GERA (acute kidney injury): Non-oliguric. Electrolytes normal. No emergent indication for LATENT FINGERPRINT EXAMINER at this time. Urine findings and presentation consistent with acute nephrotic/nephrotic glomerulonephritis but thankfully not RPGN. Differential includes (but certainly not limited to) post-infectious, membranous, IgA, ANCA, anti-GBM, or MPGN. Serologic evaluation was requested including screening for hepatitis B and C, HIV, ANCA, DARINEL, anti GBM, complement, cryo, and PLA2r. Kidney biopsy likely best option for definitive diagnosis unless serology is diagnostic. If there are no concerning signs of systemic or uncontrolled infection, I would start prednisone 60 mg daily. There is no emergent indication for definitive diagnosis with biopsy at this time. Continue diuretics to encourage gentle diuresis. Defer JONES/ARB pending stability in creatinine. Document I/Os. Repeat metabolic profile tomorrow AM. (2) Pneumonia: RML infiltrate on CXR. Pleuritic chest pain. Blood cultures pending. Started on ceftriaxone. Afebrile since admission. (3) Hyponatremia: Hypervolemic. Maintain low sodium diet and daily free water restriction. Loop diuretics to encourage urine output. Recheck tomorrow AM. (4) Anasarca: History of Present Illness Reason for Consultation: Anasarca, hypoalbuminemia, GERA on CKD Requesting Physician: Alfred Rojas DO Attending Physician: Alfred Rojas DO History of Present Illness Mr. Dinorah Lopez is a 44 year-old male with hyperlipidemia. He presented to [facility] yesterday with progressive dyspnea with exertion, right sided chest discomfort, low grade fevers, and edema. Evaluation notable for a serum creatinine of 1.9 mg/d, albumin 1.6 gm/dL. Urine demonstrating +4 protein, +3 blood, SG 1.045. Microscopy demonstrating >20 RBC and hyaline casts. No WBCs. Dinorah has never had gross hematuria. A renal US demonstrated increased echogenicity and trace perinephric fluid. Moderate ascites was appreciated in the abdomen as well as bilateral pleural effusions. LFTs normal. Serum creatinine was 1.66 mg/dL yesterday and 1.17 mg/dL in August. In October, Dinorah was admitted to [facility] with strep pharyngitis and BL LL pneumonia. He completed treatment with azithromycin and cefdinir. UA notable for +3 protein at that time but acellular microscopy. Creatinine 1.2 mg/dL on hospital discharge. CXR obtained in the ER yesterday demonstrating effusions but also a possible RML infiltrate. He has been placed on antibiotic therapy with ceftriaxone. He was resting in bed at the time of my assessment this morning. Dinorah was seen and evaluated with his at the bedside. Dinorah describes positional pain/discomfort in the right side of his chest. Symptoms are worse if he tries to lay on that side. He has difficulty taking a deep breath and mild orthopnea. He remains very dyspneic with exertion. He denies chest pain or palpitations. He denies cough or hemoptysis. He has not experienced shaking chills. Dinorah first notices a change in his activity tolerate and evidence of fluid retention in mid-December. Edema in his legs was present after a plane trip to [facility]. He describes feeling slightly tired during his vacation. Over the past week, he had started to notice fluid in his arms and some puffiness in his face as well. He was referred to the ER for evaluation evidence of pleural effusions and interstitial edema noted by his PCP. TTE obtained at in October demonstrating normal LV size and function with LVEF 55%. No significant valvular heart disease was appreciated on this study. A CTA demonstrated diffuse bilateral ground glass opacities in his lungs in October. Dinorah follows in the cardiology clinic with Dr. Richards for hyperlipidemia. He has been maintained on Crestor for management. his only other medication is occasional Ibuprofen for headaches. He has taken ~2-4 tablets of Ibuprofen per week. He denies any skin rashes or lesions. There is no significant family history of kidney disease. The patient is [place] ethnicity and denies any history of childhood glomerulonephritis. Allergies Allergy/AdvReac Type Severity Reaction Status Date / Time No Known Allergies Allergy Verified 10/25/23 10:14 Home Medications Medication Instructions Recorded Confirmed Type amoxicillin 875 mg tablet 875 mg PO BID #20 tabs 10/25/23 10/25/23 Rx rosuvastatin 20 mg tablet mg PO 10/25/23 10/25/23 History Patient History Surgical History No pertinent past surgical history Social History (Reviewed 12/04/24 @ 11:52 by JENNY Carmen Smoking Status: Former smoker Tobacco Type: Cigarettes Cigarettes Per Day: 1-4; Smoking End Date: over 20 years ago; Second Hand Exposure: No; Do You Dip or Chew Tobacco: No; Tobacco Cessation Education Requested by Patient: No Hx Alcohol Use: Yes Hx Substance Use: No Preferred Language: Sri Lankan Communication Ability: Effective Communication Ability Comment: pt has accent but has good solomon islander Core Piler Required: No Beliefs That Will Affect Care: None Current Living Situation: Family Current Living Situation Comment: lives with family Feels Safe at Home: Yes Safety Concerns: Feels Safe At This Time Assistive Devices: Glasses Review of Systems Review of Systems: All systems reviewed & are unremarkable except as noted in HPI & below Physical Exam Constitutional: well developed; no acute distress Eyes: no scleral abnormality and no corneal abnormality ENMT: Mouth: no oral mucosal abnormality and oral mucous membranes not dry Neck: normal visual inspection and trachea midline Respiratory: normal respiratory effort Auscultation: lungs clear to auscultation bilaterally Cardiovascular: Rate/Rhythm: regular rate Heart Sounds: normal S1 and normal S2 Extremities: no edema Musculoskeletal: Extremities: no cyanosis and no clubbing Skin: normal turgor; no lesions Neurologic: Motor/Sensory: no tremor and no asterixis Psychiatric: Orientation: alert and oriented x 3 Results & Data Vital Signs (Past 12 Hours) Vital Signs Temp Pulse Pulse Resp BP BP Pulse Ox 01/21/24 03:30 37.4 C 99 H 16 145/78 H 93 01/20/24 23:26 105 H 01/20/24 23:26 01/20/24 23:26 36.8 C 108 H 17 144/92 H 94 01/20/24 21:17 102 H 22 166/95 H 92 O2 Del Method 01/21/24 03:30 Room Air 01/20/24 23:26 01/20/24 23:26 Room Air 01/20/24 23:26 Room Air 01/20/24 21:17 Room Air Laboratory Results Laboratory Results - last 24 hr 01/20/24 01/20/24 01/20/24 17:40 18:54 22:28 WBC 7.12 RBC 5.05 Hgb 14.6 Hct 42.7 MCV 84.6 MCH 28.9 MCHC 34.2 RDW Std Deviation 38.2 RDW Coeff of Sachi 12.4 Plt Count 278 MPV 10.1 Immature Gran % (Auto) 0.1 Neut % (Auto) 90.4 Lymph % (Auto) 5.6 Mobile % (Auto) 3.9 Eos % (Auto) 0.0 Baso % (Auto) 0.0 Neut # (Auto) 6.43 Lymph # (Auto) 0.40 L Mobile # (Auto) 0.28 Eos # (Auto) 0.00 Baso # (Auto) 0.00 Immature Gran # (Auto) 0.01 PT 10.2 INR 0.9 APTT PTT Ratio VBG pH 7.38 VBG pCO2 38 VBG pO2 37 VBG HCO3 23 VBG O2 Saturation 65.3 VBG Base Excess -2.3 Sodium 135 L Potassium 4.0 Chloride 106 Carbon Dioxide 25 Anion Gap 4 BUN 17 Creatinine 1.95 H Est Cr Clr Drug Dosing 55.1 eGFR 42.97 BUN/Creatinine Ratio 8.7 L Glucose 89 Calcium 7.0 L Total Bilirubin 0.2 AST 42 H ALT 21 Alkaline Phosphatase 79 Troponin I High Sens 30.3 H C-Reactive Protein 5.50 H B-Natriuretic Peptide 33 Total Protein 3.9 L Albumin 1.6 L Globulin 2.3 L Albumin/Globulin Ratio 0.7 L Procalcitonin 0.64 H Urine Color Yellow Urine Appearance Cloudy A Urine pH 7.0 Ur Specific [place] > 1.045 H Urine Protein 4+ H Urine Glucose (UA) Negative Urine Ketones 1+ H Urine Blood 3+ H Urine Nitrite Negative Urine Bilirubin Negative Urine Urobilinogen Negative Ur Leukocyte Esterase Negative Urine WBC (Auto) 0-5 Urine RBC (Auto) >20 H U Hyaline Cast (Auto) >20 H U Epithel Cells (Auto) 0-2 Urine Bacteria (Auto) None Seen SARS-CoV-2 (PCR) NEGATIVE Influenza Type A (PCR) Negative Influenza Type B (PCR) Negative RSV (RT-PCR) Negative 01/21/24 01/21/24 04:58 07:31 WBC 6.14 RBC 4.82 Hgb 14.0 Hct 40.6 L MCV 84.2 MCH 29.0 MCHC 34.5 RDW Std Deviation 37.7 RDW Coeff of Sachi 12.3 Plt Count 273 MPV 10.7 Immature Gran % (Auto) 0.3 Neut % (Auto) 78.8 Lymph % (Auto) 14.3 Mobile % (Auto) 6.4 Eos % (Auto) 0.0 Baso % (Auto) 0.2 Neut # (Auto) 4.84 Lymph # (Auto) 0.88 L Mobile # (Auto) 0.39 Eos # (Auto) 0.00 Baso # (Auto) 0.01 Immature Gran # (Auto) 0.02 PT INR APTT Pending PTT Ratio Pending VBG pH VBG pCO2 VBG pO2 VBG HCO3 VBG O2 Saturation VBG Base Excess Sodium 131 L Potassium 3.5 Chloride 105 Carbon Dioxide 21 Anion Gap 5 BUN 21 Creatinine 1.91 H Est Cr Clr Drug Dosing 56.2 eGFR 44.05 BUN/Creatinine Ratio 11.0 Glucose 88 Calcium 6.6 L Total Bilirubin 0.2 AST 32 ALT 17 Alkaline Phosphatase 79 Troponin I High Sens C-Reactive Protein B-Natriuretic Peptide Total Protein 3.7 L Albumin 1.6 L Globulin 2.1 L Albumin/Globulin Ratio 0.8 L Procalcitonin Urine Color Urine Appearance Urine pH Ur Specific [place] Urine Protein Urine Glucose (UA) Urine Ketones Urine Blood Urine Nitrite Urine Bilirubin Urine Urobilinogen Ur Leukocyte Esterase Urine WBC (Auto) Urine RBC (Auto) U Hyaline Cast (Auto) U Epithel Cells (Auto) Urine Bacteria (Auto) SARS-CoV-2 (PCR) Influenza Type A (PCR) Influenza Type B (PCR) RSV (RT-PCR) Diagnostic Findings CT Abdomen and Pelvis With Intravenous Contrast COMPARISON: Ultrasound from September 16, 2023 FINDINGS: Lung bases: See below. Pleural space: Moderate bilateral pleural effusions layering posteriorly measuring 5.7 cm on the left and 8.5 cm on the right with bibasilar atelectasis. ABDOMEN: Liver: The liver measures 15.5 cm with normal appearance. Gallbladder and bile ducts: Unremarkable. No calcified stones. No ductal dilation. Pancreas: Unremarkable. No mass. No ductal dilation. Spleen: Unremarkable. No splenomegaly. Adrenals: Unremarkable. No mass. Kidneys and ureters: Unremarkable. No solid mass. No hydronephrosis. Stomach and bowel: See below. PELVIS: Appendix: The appendix is normal. Bowel loops are nondilated. There are a few scattered gas fluid levels within nondilated large and small bowel suggest a mild ileus. No focal bowel wall inflammation is identified. Bladder: Unremarkable. No mass. Reproductive: Unremarkable as visualized. ABDOMEN and PELVIS: Intraperitoneal space: There is a small amount of free fluid throughout the abdomen and pelvis measuring 1 cm thick adjacent to the liver and 4 cm thick in the pelvis. No free air. Bones/joints: No acute fracture. No dislocation. Soft tissues: Unremarkable. Vasculature: The portal vein is patent and nondilated measuring 14 mm. Lymph nodes: Unremarkable. No enlarged lymph nodes. IMPRESSION: 1. There is a small amount of free fluid throughout the abdomen and pelvis measuring 1 cm thick adjacent to the liver and 4 cm thick in the pelvis. 2. The appendix is normal. Bowel loops are nondilated. There are a few scattered gas fluid levels within nondilated large and small bowel suggest a mild ileus. No focal bowel wall inflammation is identified. 3. Moderate bilateral pleural effusions layering posteriorly measuring 5. 7 cm on the left and 8.5 cm on the right with bibasilar atelectasis. Chest x-ray one-view FINDINGS: Lung volumes are diminished. Streaky opacity present in the right upper lobe with moderate right pleural effusion and possible hazy opacity at the right lung base. Small left pleural effusion also noted. Heart size is normal. No pneumothorax. Trachea is patent. Osseous structures demonstrate no acute abnormality. No radiopaque foreign body. IMPRESSION: Opacification in the right upper lobe, likely representing pneumonia, with bilateral pleural effusions. If clinically appropriate, follow-up chest radiograph could be considered in 6 to 8 weeks to ensure radiographic resolution. US renal/blad retro comp A renal ultrasound was performed using grayscale imaging and duplex. COMPARISON: Comparison is made with prior imaging studies dated 01/20/2024. FINDINGS: Right Kidney: The right kidney measures 11.9 x 5.3 x 5.5 cm. No cyst, hydronephrosis, or calculi were identified. Renal parenchymal echogenicity is slightly increased, with a heterogeneous appearance. Cortical thickness is within normal limits. Renal pelvis is within normal limits. Left Kidney: The left kidney measures 11.3 x 7.3 x 5.1 cm. No cyst, hydronephrosis, or calculi were identified. Renal parenchymal echogenicity is slightly increased, with a heterogeneous appearance. Trace perinephric fluid is noted. Cortical thickness is within normal limits. Renal pelvis is within normal limits. Urinary Bladder: The urinary bladder is normally distended with normal wall thickness. No calculi or mass are noted. Bilateral ureteral jets were not visualized during the evaluation. Incidental Findings: A moderate amount of ascites is visible in the pelvis. Bilateral pleural effusions are also noted. As per images. IMPRESSION: 1. Slightly increased renal parenchymal echogenicity and heterogeneous appearance of both kidneys. This could be due to acute kidney injury. Need clinical and lab correlation. 2. Trace perinephric fluid around the left kidney. 3. Moderate ascites and bilateral pleural effusions. 4. No significant interval changes compared to prior recent ultrasound duplex renal dated on 01/20/2024 regarding both kidneys. PG Care Time/CCT Total # of Minutes Spent Total Time Spent with Patient: Total time spent is greater than 50% in coordination of care (as documented) at patient's floor/unit and/or counseling patient: Coding Level of Care Code 48365 IN/OBS CONSULT LVL 5,80M Diagnoses GERA (acute kidney injury) N17.9 Pneumonia J18.9 Laterality: unspecified laterality Lung location: unspecified part of lung Pneumonia type: due to unspecified organism Hyponatremia E87.1 Anasarca R60.1 (2) Pneumonia Laterality: unspecified laterality Lung location: unspecified part of lung Pneumonia type: due to unspecified organism Qualified Code(s): J18.9 - Pneumonia, unspecified organism
--- NOTE | 2024-01-21 09:28 | Ultrasound Report ---
EXAM: US duplex renal art/vein BI CLINICAL HISTORY: HX: no prev. GERA, HTN. RT KID: 12 cm RT arc art: WNL. RRV: patent as seen. RRA: no increased velocities detected. see worksheet at end of eval for velocity measurements. RT RAR: 1.1 LT KID: 11.9 cm. LT arc art: WNL. LRV: patent as seen. LRA: no increased velocities detected. see worksheet at end of eval for velocity measurements. LT RAR: 1 TECHNIQUE: A renal ultrasound was performed using grayscale and color Doppler imaging. One or more of the following were performed- spectral analysis, resistive index, waveform analysis, and pulsed Doppler. COMPARISON: None. FINDINGS: Right Kidney: The right kidney measures 11.9 cm. No cyst, hydronephrosis, calculi, or masses were identified. Renal parenchymal echogenicity is normal. Cortical thickness: Within normal. Renal pelvis within normal. Color doppler: Arcuate arteries: Upper pole PSV - 26.4 cm/s, ED - 10.0 cm/s, RI - 0.62 Mid pole PSV - 27.5 cm/s, ED - 12.2 cm/s, RI - 0.56 Lower pole PSV - 25.9 cm/s, ED - 12.2 cm/s, RI - 0.53 Right renal artery: Proximal PSV - 133.6 cm/s, ED - 48.9 cm/s Mid PSV - 163.6 cm/s, ED - 71.2 cm/s Distal PSV - 176.4 cm/s, ED - 63.2 cm/s Right renal vein shows normal color flow. Left Kidney: The left kidney measures 11.8 cm. No cyst, hydronephrosis, calculi, or masses were identified. Renal parenchymal echogenicity is normal. Cortical thickness: Within normal. Renal pelvis within normal. Color doppler: Arcuate arteries: Upper pole PSV - 17.7 cm/s, ED - 7.2 cm/s, RI - 0.59 Mid pole PSV - 23.7 cm/s, ED - 8.9 cm/s, RI - 0.62 Lower pole PSV - 27.0 cm/s, ED - 11.1 cm/s, RI - 0.59 Right renal artery: Proximal PSV - 72.1 cm/s, ED - 22.8 cm/s Mid PSV - 162.0 cm/s, ED - 54.6 cm/s Distal PSV - 78.0 cm/s, ED - 31.8 cm/s Left renal vein shows normal color flow. Aorta: Measurements are within normal limits. No atherosclerosis noted. No aneurysm or dissection was identified. PSV - 164.0 cm/s, ED - 42.3 cm/s Inferior Vena Cava (IVC): Appears normal. IMPRESSION: Normal renal ultrasound doppler. Electronically signed by Crow Rush 01-21-2024 09:10 AM
[2024-01-21 09:36] LABS: Partial Thromboplastin Ratio 1.3; Partial Thromboplastin Time 35 Seconds (21-31)
--- NOTE | 2024-01-21 09:47 | Electrocardiogram Report ---
Test Reason : Blood Pressure : */* mmHG Vent. Rate : 114 BPM Atrial Rate : 114 BPM P-R Int : 136 ms QRS Dur : 96 ms QT Int : 298 ms P-R-T Axes : 53 68 -34 degrees QTcB Int : 410 ms Sinus tachycardia Abnormal ECG No previous ECGs available Confirmed by Bobo Way ([id number]) on 01/21/2024 9:47:15 AM Referred By: REFERRED SELF Confirmed By: Bobo Way
[2024-01-21 11:18] LABS: Hep B Core Total Antibody Negative (Negative)
[2024-01-21 11:22] LABS: Hep B Surface Ag with confirm Negative (Negative)
[2024-01-21 11:28] LABS: Hep C Ab Rflx HepCQuant RNA Negative (Negative)
[2024-01-21 11:31] LABS: Hepatitis B Surface Antibody Immune
[2024-01-21] MEDS: predniSONE 20 MG TAB PO STA (15:16)
[2024-01-21] MEDS: FUROSEMIDE 40 MG/4 ML VIAL IV ONE (15:21)
--- NOTE | 2024-01-21 17:03 | Billing Data ---
Date of Service January 21, 2024 Coding Level of Care Code 24100 SUB INP/OBS CARE
[2024-01-22 04:06] LABS: Urine Creatinine 66.7 mg/dl; Urine Total Protein 405.6 mg/dl
[2024-01-22 04:07] LABS: Creatinine 24 Hour Urine 2.6 gm/24 HR (0.6-2.5); Total Protein 24 Hour Urine 15818.4 mg/24 Hr (0-149.1)
[2024-01-22 04:46] VITALS: RESP 18
--- NOTE | 2024-01-22 06:56 | Hospitalist Progress Note ---
Date of Service January 22, 2024 Assessment & Plan (1) Glomerulonephritis: Plan: suspicion based on UA with 4+ protein, 3+ blood, low serum albumen, Strep pharyngitis 2-3mos ago, and current pneumonia - follow antibody and complement labs ordered by count team clerk, Dr. Aggarwal - follow nephro notes Lasix for fluid overload Prednisone 60mg qAM for suspected glomerulonephropathy (2) Anasarca: Plan: differential is broad to include infection, nephritic/nephrotic syndromes - vital signs stable, WBCs normal - Creatinine 1.66; UA 4+ protein, 3+ blood, no bacteria or leuks Renal artery duplex: unremarkable Renal US: Slightly increased renal parenchymal echogenicity and heterogeneous appearance of both kidneys 24 hr urine albumin & creatinine ordered Lasix ordered for fluid overload (3) GERA (acute kidney injury): Plan: Cr was 1.17 in August 2023 -> 1.66 on 01/20/24 - suspecting a glomerulonephritis (see #1) - antibody and complement labs pending Prednisone for suspected glomerulonephropathy (4) Pleural effusion: Plan: likely 2/2 albumin wasting via kidney excretion - Lasix for fluid overload (5) Pneumonia: Plan: CXR and CTA suggestive of RML pneumonia, afebrile with normal WBC count - will continue CTX for now - pending sputum and blood cultures - CBC qAM (6) Hypoalbuminemia: Plan: differential is broad to include infection, nephritic/nephrotic syndromes UA: 4+ protein, serum albumin 1.6 (low) 24 hr urine albumin & creatinine ordered - CMP qAM (7) Hyponatremia: Plan: likely due to fluid overload status - free water restriction - Lasix for diuresis - CMP qAM (8) HLD (hyperlipidemia): Plan: chronic, holding Crestor in setting of acute illness Plan if antibody and complement labs still unclear, likely transfer to facility that can perform renal biopsy for definitive diagnosis Admission and Anticipated Discharge Date Admission Date: January 20, 2024 Subjective To be updated: [[Patient was seen and evaluated at bedside, lying in bed appearing in mild d istress. States he was able to sleep okay. This morning, endorses he is feeling tired. Denies any pain at this time. States he has been coughing and there is some yellow sputum production but no blood as far as he has noticed. Endorses he has urinated 3 times overnight, which he describes as "dark yellow", denies any blood by appearance, denies burning or pain with urination. Believes it is darker since he has not been drinking as much water has he was before he came to the hospital. Confirms that he had and treated Strep throat in October 2023 with resolution of symptoms. Denies ever having this significant swelling before, denies ever having any kidney issues in the past. Endorses when he was in [place] last month from 01/02/24 - 01/17/24, he had 3- 4 alcoholic beverages, which he states is more than usual for him. Otherwise, denies any particular illness, medications/drugs, needle use, trauma, animal bites, or insect bites while in [place]. Denies current fever, chills, sweats, visual changes, hearing changes, hemoptysis, SOB, chest pain, abdominal pain, LE pain, LE tingling/numbness. Review of Systems Review of Systems: per HPI Physical Exam Physical Exam: To be updated: [[Constitutional: A&Ox4, appearing in mild distress, nontoxic in appearance HEENT: NC/AT, b/l conjunctival injection, EOM intact, anicteric sclerae Cardiovascular: RRR, +s1/s2, no m/r/g - 2+ radial and carotid pulses, 2+ poste rior tibial and dorsalis pedis pulses Resp: slightly diminished breath sounds in b/l lung bases R>L, otherwise clear to auscultation, no wheezes/rales/rhonchi GI: abdomen soft, nondistended, nontender to palpation, BS normoactive, no fluid wave MSK: 5/5 strength in all extremities Skin: warm, dry, no rashes; b/l 3+ pitting edema b/l LE up to proximal lower legs, no significant pitting in b/l UE Neuro: no facial droop, speech intact, no sensory deficits Results & Data Results & Data Vital Signs (Past 12 Hours) Vital Signs Temp Pulse Pulse Resp BP Pulse Ox O2 Del Method 01/22/24 04:00 36.5 C 78 18 129/84 94 Room Air 01/21/24 23:00 36.7 C 88 16 148/81 H 93 Room Air 01/21/24 22:14 Room Air 01/21/24 21:45 89 01/21/24 19:29 36.5 C 86 16 117/83 95 Room Air (5) Pneumonia Laterality: unspecified laterality Lung location: unspecified part of lung Pneumonia type: due to unspecified organism Qualified Code(s): J18.9 - Pneumonia, unspecified organism
[2024-01-22 08:24] LABS: Hematocrit (blood only) 42.7 % (42.0-52.0); Hemoglobin 14.7 g/dl (14.0-18.0); Immature Granulocytes # (auto) 0.01 K/uL (0.01-0.20); Immature Granulocytes % (auto) 0.4 %; Lymphocytes # (auto) 0.76 K/uL (1.20-3.40); Lymphocytes % (auto) 29.2 %; Mean Corpuscular Hemoglobin 28.9 pg (25.0-34.0); Mean Corpuscular Hgb Conc 34.4 g/dL (32.0-36.0); Mean Corpuscular Volume 83.9 fL (80.0-100.0); Mean Platelet Volume 10.1 fL (9.4-12.4); Monocytes # (auto) 0.23 K/uL (0.11-0.59); Monocytes % (auto) 8.8 %; Neutrophils % (auto) 61.6 %; Platelet Count 289 K/uL (130-400); RDW Coefficient of Variation 12.4 % (11.5-14.5); RDW Standard Deviation 37.8 fL (36.4-46.3); Red Blood Count 5.09 M/uL (4.70-6.10)
[2024-01-22 08:35] LABS: Albumin Globulin Ratio 0.7 (0.9-2); Albumin Level 1.7 gm/dl (3.4-5.0); BUN Creatinine Ratio 14.9 (10-20); Bilirubin,Total 0.2 mg/dl (0.2-1.0); Calcium 7.1 mg/dl (8.6-10.3); Creatinine Clr Calc Pharmacy 64.2 ml/min; Globulin 2.6 gm/dl (2.5-4.0); Potassium 3.9 mmol/L (3.5-5.1); Total Protein 4.3 gm/dl (6.0-8.3)
[2024-01-22] MEDS: ENOXAPARIN INJ 30 MG/0.3 ML SYR SQ SCH (08:43)
[2024-01-22] MEDS: predniSONE 20 MG TAB PO SCH (08:43)
[2024-01-22] MEDS: FUROSEMIDE 40 MG/4 ML VIAL IV SCH (09:31)
--- NOTE | 2024-01-22 10:23 | Nephrology Progress Note ---
Date of Service January 22, 2024 Assessment & Plan (1) GERA (acute kidney injury): Plan: Non-oliguric. Electrolytes normal. Volume status improving. Urine findings and presentation consistent with acute nephrotic/nephrotic glomerulonephritis but thankfully not RPGN. Differential includes (but certainly not limited to) membranous, IgA, ANCA, post infectious, anti-GBM, or MPGN. Serologic evaluation was requested including screening for hepatitis B and C, HIV, ANCA, DARINEL, anti GBM, complement, cryo, and PLA2r. Kidney biopsy likely best option for definitive diagnosis unless serology is diagnostic. Prednisone 60 mg daily was started yesterday. Kidney function stable. There is no emergent indication for definitive diagnosis with biopsy at this time. It would be reasonable to continue to monitor with close outpatient follow up. If easier to logistically coordinate biopsy as inpatient, this is also a reasonable consideration. Continue diuretics to encourage gentle diuresis. Consider starting losartan 25 mg daily. Start Bactrim DS x 1 QMWF for PCP prophylaxis while on prednisone. Daily PPI encouraged while on prednisone. (2) Pneumonia: Plan: Low suspicion based on CT findings and clinical presentation. Started on ceftriaxone. No concerning symptoms at this time. (3) Hyponatremia: Plan: Improved. (4) Anasarca: Plan: Improving with diuretics. Continue furosemide 20-40 mg daily. Close outpatient follow up. Low sodium diet. Admission and Anticipated Discharge Date Admission Date: January 20, 2024 Subjective No acute events overnight. Mr. Lopez was sitting comfortably in bed this AM. He feels well overall. Edema is improving. He denies any dyspnea. Breathing more comfortably. No headache today. Denies pain. He told me this AM that he thought that he was going to [place] for a kidney biopsy. I told him that this could be arranged as an inpatient or outpatient. I also discussed with Dr. Rojas. Review of Systems Review of Systems: All systems reviewed & are unremarkable except as noted in HPI & below Physical Exam Constitutional: well developed; no acute distress Eyes: no scleral abnormality and no corneal abnormality ENMT: Mouth: no oral mucosal abnormality and oral mucous membranes not dry Neck: normal visual inspection and trachea midline Respiratory: normal respiratory effort Auscultation: lungs clear to auscultation bilaterally Cardiovascular: Rate/Rhythm: regular rate Heart Sounds: normal S1 and normal S2 Extremities: + edema Musculoskeletal: Extremities: no cyanosis and no clubbing Skin: normal turgor; no lesions Neurologic: Motor/Sensory: no tremor and no asterixis Psychiatric: Orientation: alert and oriented x 3 Results & Data Vital Signs (Past 12 Hours) Vital Signs Temp Pulse Pulse Resp BP BP Pulse Ox 01/22/24 09:13 01/22/24 08:03 36.3 C L 69 18 105/62 93 01/22/24 07:30 62 01/22/24 04:00 36.5 C 78 18 129/84 94 01/21/24 23:00 36.7 C 88 16 148/81 H 93 O2 Del Method 01/22/24 09:13 Room Air 01/22/24 08:03 Room Air 01/22/24 07:30 01/22/24 04:00 Room Air 01/21/24 23:00 Room Air PG Care Time/CCT Total # of Minutes Spent Total Time Spent with Patient: Total time spent is greater than 50% in coordination of care (as documented) at patient's floor/unit and/or counseling patient: Coding Level of Care Code 83666 SUB INP/OBS CARE 3/50MIN Diagnoses GERA (acute kidney injury) N17.9 Pneumonia J18.9 Laterality: unspecified laterality Lung location: unspecified part of lung Pneumonia type: due to unspecified organism Hyponatremia E87.1 Anasarca R60.1 (2) Pneumonia Laterality: unspecified laterality Lung location: unspecified part of lung Pneumonia type: due to unspecified organism Qualified Code(s): J18.9 - Pneumonia, unspecified organism
[2024-01-22] MEDS: PANTOprazole 40 MG TAB PO SCH (12:19)
[2024-01-22 15:42] VITALS: BP 134/89; TEMP 97.7; O2SAT 92
[2024-01-22 15:59] VITALS: PULSE 86
--- NOTE | 2024-01-22 17:27 | Discharge Summary ---
Discharge Summary Date of Service January 22, 2024 Principal Dx & Hospital Course #1 = Principal Diagnosis (1) Glomerulonephritis: clinical situation appears consistent with both glomerulonephritis and nephrotic syndromeserologies have been sent and are pending, as are complement levels. Set up for renal biopsy as an outpatient. Clinically stable, and feeling a bit better after initiation of Lasix, somewhere between initiating Lasix and prednisone his creatinine has improved some. He would very much like to be able to be home, and appears it is safe to send him home with close outpatient follow-up. - Lasix 40 mg p.o. daily, losartan daily, prednisone 60 mg daily taper as directed by nephrology - biweekly basic metabolic panels for the foreseeable future - follow-up with PCP and nephro alternating weeks so that he sees a physician weekly until the situation has improved further (2) Anasarca: due to above (3) GERA (acute kidney injury): due to above (4) Pleural effusion: likely 2/2 albumin wasting via kidney excretion - Lasix for fluid overload, but may need thoracentesis depending on his progressobviously not emergently (5) Pneumonia: CXR and CTA suggestive of RML pneumonia, afebrile with normal WBC countso fairly skeptical as to whether or not he truly has a pneumonia; at the same time he had multiple infections recently and is currently immune compromisedwill treat empirically. Is safe/stable for home (6) Hypoalbuminemia: due to nephrotic syndrome (7) Hyponatremia: related to all of above (8) HLD (hyperlipidemia): chronic, holding Crestor in setting of acute illness Plan safe/stable for home, med management as above, biweekly basic metabolic panel, weekly physician follow-up alternating between PCP and nephrology Notes For Next Care Provider Medication Changes From Visit initiation of Lasix, losartan, prednisone; short course of antibiotics for possible (although not likely) pneumonia Admission HPI Per Admitting Provider 44 yo male PMHx HLD on Crestor admitted with progressive soft tissue edema, SOB, dyspnea on exertion and fever. Symptoms initially began 01/02/24 after arriving in [place] for vacation. The swelling was minor in the b/l LE at that time. Since returning from [place] 01/17/24 edema has been progressive and now involves the entirely of b/l LE, arms, and face. He was seen by [facility] cardiology yesterday for follow up of his HLD and when LE edema was noted, b/l venous dopplers were performed with were negative for DVT. He had labs performed at that time, as well. They were notable for Na 133, Ca 7.4, Mg 2.0, ESR 48, and Cr of 1.66 (Cr was 1.17 in August 2023). He has no known history of cardiac, pulmonary, or renal disease. Patient was treated for GAS in 10/2023 and was reportedly admitted to [facility] around the same time for b/l lower lobe PNA. As his symptoms have worsened over the last several days, he has had decreased oral intake to both food and fluids. Today he reports significant fatigue, SOB, cough, pleuritic chest pain with cough. Denies any cardiac chest pain, abdominal pain, N/V/D, changes in urine. ED Course: CTX CBC WNL CMP significant for Na 135, Cr 1.95, BUN/Cr 8.7, CRP 5.5, Albumin 1.6, procal 0.64 CTA Chest: no PE, +b/l pleural effusion, likely RML infiltrate CTAP: sm free fluid perihepatic and pelvic, otherwise largely unremarkable Blood Cx drawn Updated Medication List Medication Instructions Recorded Confirmed Type rosuvastatin 20 mg tablet mg PO 10/25/23 10/25/23 History amoxicillin 875 mg-potassium 1 tab PO BID 7 days #14 tabs 01/22/24 Rx clavulanate 125 mg tablet furosemide 40 mg tablet 40 mg PO DAILY 2 weeks #14 tabs 01/22/24 Rx losartan 25 mg tablet 25 mg PO DAILY #14 tabs 01/22/24 Rx prednisone 20 mg tablet 60 mg (3 x 20 mg) PO QAM 14 days 01/22/24 Rx #14 tabs Hospital Stay Data Consultations 01/21/24 06:47 Consult Nephrology Routine Diagnostic Imagining Performed 01/20/24 17:58 CT abd pelvis IV con only Stat CT angio chest PE protocol Stat 01/20/24 22:35 US doppler renal [US duplex renal art/vein BI] Stat 01/20/24 22:55 US Renal Bladder [US renal/blad retro comp] Stat Pending Results Patient Have Any Pending Studies at Discharge: Yes Discharge Instructions Given to Patient (Per Discharging Provider) You were evaluated and treated at [facility] for significant generalized swelling, first noticed after flight on 01/01 to [facility], but significantly worsened after flight back home on 01/16. You also had a fever, cough, and shortness of breath a few days later, at which point you came to [facility] to be seen. You were found to have a very high amount of protein and blood in your urine, in addition to fluid in your lungs. You were admitted to be treated for your suspected kidney condition and pneumonia. You have been receiving antibiotics for the pneumonia; steroid and diuretics for your kidney condition and related swelling due to protein loss. We will discharge you on an oral antibiotic (Amoxicillin) to ensure complete resolution of your pneumonia. We will additionally continue your prednisone (st eroid) to reduce inflammation within your kidneys, and losartan 25mg daily to ensure your blood pressure is kept from getting too high. Since definitive diagnosis of your kidney condition is done by kidney biopsy, we are scheduling you an appointment to have this done as an outpatient within the next two weeks. Aiming for [facility] interventional radiology - this will likely be the week of Feb 01 if all goes as planned and they should reach out to you regarding your appt. If you don't hear from them by the end of next week (Jan 28), please call the [facility] Scheduling office: [phone] to [place] or any other location over an hour, please stop your car to get out and walk around for 5-10min in order to prevent clotting and swelling. Please follow up with your PCP, Dr. Carroll, and with your tyre fitter, Dr. Aggarwal, in alternating weeks. We will also have you get a BMP (basic metabolic panel) twice a week to monitor your electrolyte and kidney enzyme levels. Total Time Total Time Spent Total Time Spent (In Minutes): <30
--- NOTE | 2024-01-22 17:27 | Billing Data ---
Date of Service January 22, 2024 Coding Level of Care Code 62784 IN/OBS DISCH 30 MIN/LESS
--- NOTE | 2024-01-22 17:50 | Discharge Summary ---
Date of Service January 22, 2024 Admission HPI Per Admitting Provider 44 yo male PMHx HLD on Crestor admitted with progressive soft tissue edema, SOB, dyspnea on exertion and fever. Symptoms initially began 01/02/24 after arriving in [place] for vacation. The swelling was minor in the b/l LE at that time. Since returning from [place] 01/17/24 edema has been progressive and now involves the entirely of b/l LE, arms, and face. He was seen by [facility] cardiology yesterday for follow up of his HLD and when LE edema was noted, b/l venous dopplers were performed with were negative for DVT. He had labs performed at that time, as well. They were notable for Na 133, Ca 7.4, Mg 2.0, ESR 48, and Cr of 1.66 (Cr was 1.17 in August 2023). He has no known history of cardiac, pulmonary, or renal disease. Patient was treated for GAS in 10/2023 and was reportedly admitted to [facility] around the same time for b/l lower lobe PNA. As his symptoms have worsened over the last several days, he has had decreased oral intake to both food and fluids. Today he reports significant fatigue, SOB, cough, pleuritic chest pain with cough. Denies any cardiac chest pain, abdominal pain, N/V/D, changes in urine. ED Course: CTX CBC WNL CMP significant for Na 135, Cr 1.95, BUN/Cr 8.7, CRP 5.5, Albumin 1.6, procal 0.64 CTA Chest: no PE, +b/l pleural effusion, likely RML infiltrate CTAP: sm free fluid perihepatic and pelvic, otherwise largely unremarkable Blood Cx drawn Principal Diagnosis glomerulonephritis Discharge Exam Constitutional: A&Ox4, appearing in mild distress, nontoxic in appearance HEENT: NC/AT, b/l conjunctival injection, EOM intact, anicteric sclerae Cardiovascular: RRR, +s1/s2, no m/r/g - 2+ radial and carotid pulses, 2+ posterior tibial and dorsalis pedis pulses Resp: slightly diminished breath sounds in b/l lung bases R>L, otherwise clear to auscultation, no wheezes/rales/rhonchi GI: abdomen soft, nondistended, nontender to palpation, BS normoactive, no fluid wave MSK: 5/5 strength in all extremities Skin: warm, dry, no rashes; b/l 2+ pitting edema b/l LE up to proximal lower legs, no significant pitting in b/l UE Neuro: no facial droop, speech intact, no sensory deficits Discharge Data Allergies Allergy/AdvReac Type Severity Reaction Status Date / Time No Known Allergies Allergy Verified 10/25/23 10:14 Consultations 01/21/24 06:47 Consult Nephrology Routine Ordered Studies 01/20/24 17:58 CT abd pelvis IV con only Stat CT angio chest PE protocol Stat 01/20/24 22:35 US doppler renal [US duplex renal art/vein BI] Stat 01/20/24 22:55 US Renal Bladder [US renal/blad retro comp] Stat Hospital Course (1) Glomerulonephritis: suspicion based on UA with 4+ protein, 3+ blood, low serum albumen, Strep pharyngitis 2-3mos ago, and current pneumonia - follow antibody and complement labs ordered by fire assistant, Dr. Aggarwal - follow nephro notes Lasix for fluid overload Prednisone 60mg qAM for suspected glomerulonephropathy Outpatient renal biopsy at [facility] within next 2-3 weeks pending scheduling - to follow up with PCP Dr. Carroll and nephro Dr. Aggarwal alternating weeks upon discharge - BMP twice a week to trend Cr and electrolytes (2) Anasarca: differential is broad to include infection, nephritic/nephrotic syndromes - vital signs stable, WBCs low - Creatinine 1.66; UA 4+ protein, 3+ blood, no bacteria or leuks Renal artery duplex: unremarkable Renal US: Slightly increased renal parenchymal echogenicity and heterogeneous appearance of both kidneys 24 hr urine albumin & creatinine ordered Lasix ordered for fluid overload (3) Pneumonia: CXR and CTA suggestive of RML pneumonia, afebrile with normal WBC count Sputum positive for rare gram + cocci - Augmentin BID for 7 days upon discharge (4) GERA (acute kidney injury): Cr was 1.17 in August 2023 -> 1.66 on 01/20/24 - suspecting a glomerulonephritis (see #1) - antibody and complement labs pending Prednisone for suspected glomerulonephropathy (5) Pleural effusion: likely 2/2 albumin wasting via kidney excretion - Lasix for fluid overload (6) Hypoalbuminemia: differential is broad to include infection, nephritic/nephrotic syndromes UA: 4+ protein, serum albumin 1.6 (low) 24 hr urine albumin >15,000 (7) Hyponatremia: likely due to fluid overload status - free water restriction - Lasix for diuresis - CMP qAM (8) HLD (hyperlipidemia): chronic, holding Crestor in setting of acute illness Plan Outpatient renal biopsy at [facility] within next 2-3 weeks pending scheduling - to follow up with PCP Dr. Carroll and nephro Dr. Aggarwal alternating weeks upon discharge - BMP twice a week to trend Cr and electrolytes Total Time Total Time Spent Total Time Spent (In Minutes): 45 Discharge Plan Discharge Items Patient Disposition: Home - Self-Care Reason For Visit: ANASARCA, PLEURAL EFFUSION Discharge Diagnosis: glomerulonephritis (unknown type), anasarca, pneumonia Activity: Per Instructions section Non-emergency contact: Primary Care Provider and Clinical Care Coordinator Call non-emergency contact if: your symptoms worsen and your pain is not controlled Follow-up/Referrals: Brett Aggarwal DO [Physician] - 02/09/24 8:00 am Romina Carroll DO [Primary Care Provider] - 01/29/24 1:05 pm Diet: Regular and Low Sodium (2gm) Addtl Attending Provider Instructions: You were evaluated and treated at [facility] for significant generalized swelling, first noticed after flight on 01/01 to [facility], but significantly worsened after flight back home on 01/16. You also had a fever, cough, and shortness of breath a few days later, at which point you came to [facility] ER to be seen. You were found to have a very high amount of protein and blood in your urine, in addition to fluid in your lungs. You were admitted to be treated for your suspected kidney condition and pneumonia. You have been receiving antibiotics for the pneumonia; steroid and diuretics for your kidney condition and related swelling due to protein loss. We will discharge you on an oral antibiotic (Amoxicillin) to ensure complete resolution of your pneumonia. We will additionally continue your prednisone (steroid) to reduce inflammation within your kidneys, and losartan 25mg daily to ensure your blood pressure is kept from getting too high. Since definitive diagnosis of your kidney condition is done by kidney biopsy, we are scheduling you an appointment to have this done as an outpatient within the next two weeks. Aiming for [facility] interventional radiology - this will likely be the week of Feb 01 if all goes as planned and they should reach out to you regarding your appt. If you don't hear from them by the end of next week (Jan 28), please call the [facility] Scheduling office: [phone] to [place] or any other location over an hour, please stop your car to get out and walk around for 5-10min in order to prevent clotting and swelling. Please follow up with your PCP, Dr. Carroll, and with your fire assistant, Dr. Aggarwal, in alternating weeks. We will also have you get a BMP (basic metabolic panel) twice a week to monitor your electrolyte and kidney enzyme levels. Pending Studies at Discharge: Yes Studies:: multiple antibody and complement labs Stand-Alone Forms: My [facility] YouOS, Smoking Cessation Medications and DC Order Prescriptions: New furosemide 40 mg tablet 40 mg PO DAILY 14 Days Qty: 14 0RF losartan 25 mg tablet 25 mg PO DAILY Qty: 14 0RF prednisone 20 mg Tablet 60 mg PO QAM 14 Days Qty: 14 0RF amoxicillin-pot clavulanate 875-125 mg tablet 1 tab PO BID 7 Days Qty: 14 0RF Continued rosuvastatin 20 mg tablet PO Discontinued amoxicillin 875 mg tablet 875 mg PO BID Qty: 20 0RF Discharge Orders: Discharge Order (Routine); Ordered 01/22/24 Ordered By: Brayan Gao/Other Patient Handouts: Taking a Diuretic, Monitoring Kidney Health, How Your Kidneys Work, When You Have Pneumonia Admission Data Admit Date/Time: 01/20/24 21:53 Attending Provider: Alfred Rojas Admit Provider: Dorian Andersen Primary Care Provider: Romina Carroll Other Providers: Brett Aggarwal Other Interventions: Discharge Summary Assessment (RN) Last Done: 01/22/24 14:56 Resident Activity Tracking Resident Involvement: Resident Care Provided Care Provided: Adult Hospital Medicine
--- OUTSIDE RECORDS SUMMARY | 2024-01-23 02:37 | External Medical Summary | Continuity of Care Document ---
Author Name Unknown Organization [place] [address] [address] Address [address] [place], [place] [id number] Care Team Providers Care Chemical Mixer Name Role Phone Romina Carroll Primary Care Physician [phone] [id number]/23 - 12/19/23 [facility] [address], [address] [place] [address] [phone] Discharge Disposition: Home or Self Care Attending Physician: DO Perkins Michelle L Referring Physician: DO Perkins Michelle L Allergies, Adverse Reactions, Alerts No Known Allergies Immunizations Given and Recorded Vaccine Date Status Refusal Reason SARS-CoV-2 (COVID-19) mRNA-1273 vaccine 1 02/23/21 Recorded SARS-CoV-2 (COVID-19) mRNA BNT-162b2 vax 2 06/17/20 Recorded SARS-CoV-2 (COVID-19) mRNA BNT-162b2 vax 3 05/27/20 Recorded influenza virus vaccine, inactivated 12/19/19 Boyd rded 1Result Comment: 2021-06-05: Historical information-source unspecified 2Result Comment: 2021-06-05: Historical information-source unspecified 3Result Comment: 2021-06-05: Historical information-source unspecified Medications Albuterol (Eqv-ProAir HFA) 90 mcg/inh inhalation aerosol Start: 11/14/23 2:35:00 PM EDT, 2 puff, inhaled, q6h, Disp# 6.7 g, Pharmacy: [facility]/pharmacy #[id number] Start Date: 11/14/23 Status: Ordered Crestor 20 mg oral tablet Start: 10/14/23 1:03:00 PM EDT, 1 tab, PO, Daily, Disp# 90 tab, Refills: 3, Pharmacy: [id number] Start Date: 10/14/23 Stop Date: 10/08/24 Status: Ordered multivitamin Start: 01/12/20 3:12:00 PM EST, 1 tab, PO, Daily Start Date: 01/12/20 Status: Ordered Nattokinase Start: 10/13/23 8:04:00 AM EDT, Nattokinase, 2,000 once a day Start Date: 10/13/23 Status: Ordered Tessalon Perles 100 mg oral capsule Start: 11/14/23 2:35:00 PM EDT, 1 cap, PO, tid, Disp# 30 cap, Pharmacy: [id number] Start Date: 11/14/23 Status: Ordered Problem List Condition Confirmation Course Effective Dates Status H ealth Status Informant Transaminitis Confirmed Active Exposure to hepatitis B Confirmed Active Hearing problem Confirmed Active HLD (hyperlipidemia) Confirmed Active Mild obstructive sleep apnea Confirmed Active Body mass index [BMI] 26.0-26.9, adult Confirmed Active Pneumonia Confirmed Active Gallbladder polyp Confirmed Active Procedures Procedure Date Related Diagnosis Body Site Status US - Ultrasound Abdomen 1 07/04/21 Completed Ultrasound scan of abdomen, right upper quadrant and epigastrium 2 01/28/20 Completed 1Stable size of the 5 mm gallbladder polyp. No cholelithiasis No biliary ductal dilation 2Impression: 5 mm echogenic nonmobile focus adherent to the gallbladder wall. This favors a polyp. No gallstones or biliary ductal dilatation. Results Radiology Reports * Exam Date Time Procedure Performing Provider Status 12/19/23 9:07 AM Echo TransTHORacic TTE Complete Sonam Summers; Final Notes: (Echo TransTHORacic TTE Complete) Reason For Exam: severe hypercholesterolemia Echo TransTHORacic TTE Complete Report Signatures Finalized by Dr. Margy Perkins DO on 12/19/2023 09:35 AM [place] Act 112: No-No further action needed Summary 1. Normal left ventricular size and systolic function with no regional wall motion abnormalities. 2. Ejection fraction as calculated by Biplane Simpsons method is 70%. 3. Mild concentric left ventricular hypertrophy. 4. Normal LV diastolic function and filling pressure. 5. Normal right ventricular size and function. 6. Normal biatrial size. 7. The aortic root at the sinus of Valsalva is mildly dilated, measuring 4.1 cm with an index of 2.07 cm/m2. 8. No valvular pathology. 9. Insufficient data for estimation of pulmonary artery systolic pressures. 10. No prior studies for comparison. Patient Info Name: DAVE LAGUERRE Age: 43 years : 1980 Gender: Male Ht: 178 cm Wt: 80 kg BSA: 1.99 m2 HR: 76 bpm BP: 110 / 68 mmHg Heart Rhythm: Sinus Rhythm Technical Quality: Good Exam Date: 12/19/2023 8:45 AM Exam [facility] Patient Status: Outpatient Staff Ordering Physician: Margy Perkins Filter Tender Jelly: Sonam Summers RDCS, T Attending Physician: [facility] Perkins [facility] Study Info CPT 85822 - Indications E7879 - Other disorders of bile acid and cholesterol metabolism Procedure(s) * A complete two-dimensional, color flow and Doppler transthoracic echocardiogram was performed. Exam Type: Cardiac Basic Left Ventricle Normal left ventricular size and systolic function with no regional wall motion abnormalities. Ejection fraction as calculated by Biplane Simpsons method is 70%. Mild concentric left ventricular hypertrophy. Normal LV diastolic function and filling pressure. Right Ventricle Normal right ventricular size and function. TAPSE is normal, 2.0 cm. Left Atrium Normal left atrial size. Right Atrium Normal right atrial size. Atrial Septum Lipomatous hypertrophy of the atrial septum; Appears intact. Aortic Valve Normal, tricuspid aortic valve. Pulmonic Valve Normal pulmonic valve. Mitral Valve Normal mitral valve. Tricuspid Valve Normal tricuspid valve. Insufficient TR for estimation of pulmonary artery systolic pressure. Pericardium/Pleural No pericardial effusion. Inferior Vena Cava Normal IVC size and inspiratory collapse. Estimated right atrial pressure is 3 mmHg. Aorta The aortic root at the sinus of Valsalva is mildly dilated, measuring 4.1 cm with an index of 2.07 cm/m2. Normal ascending aorta and aortic arch. Left Ventricular Outflow Tract Name Value Normal LVOT 2D LVOT Diameter 2.2 cm LVOT Doppler LVOT Peak Velocity 0.87 m/s LVOT Mean Gradient 1 mmHg LVOT VTI 16.10 cm LVOT Stroke Volume 59.25 ml LVOT Stroke Volume Index 0.03 l/m2 LVOT Cardiac Output 4.50 l/min LVOT Cardiac Index 2.26 L/min/m2 Pulmonic Valve Name Value Normal PV 2D RVOT Diameter (2D) 2.2 cm 1.7-2.7 RVOT Doppler RVOT Peak Velocity 0.71 m/s PV Doppler PV Peak Velocity 0.95 m/s Mitral Valve Name Value Normal MV Doppler MV PHT 55 ms MV Diastolic Function MV E Peak Velocity 0.70 m/s <=0.50 MV A Peak Velocity 0.59 m/s MV E/A 1.19 <=0.80 MV Decel Time 190 ms MV Annular TDI MV Septal s' Velocity 8.08 cm/s MV Septal e' Velocity 10.50 cm/s >=7.00 MV E/e' (Septal) 6.7 <=8.0 MV Lateral s' Velocity 10.40 cm/s MV Lateral e' Velocity 15.20 cm/s >=10.00 MV E/e' (Lateral) 4.62 <=8.00 MV e' Average 12.85 MV E/e' (Average) 5.66 <=14.00 Tricuspid Valve Name Value Normal Estimated PAP/RSVP RA Pressure 3 mmHg <=5 TV Diastolic Function TV E Peak Velocity 0.57 m/s TV A Peak Velocity 0.40 m/s TV E/A 1.43 0.80-2.00 TV Decel Time 144 ms >=120 TV Annular TDI TV Lateral Janie s' Velocity 14.0 cm/s 9.5-18.7 TV Lateral Janie e' Velocity 14.7 cm/s <7.8 TV E/e' 3.89 2.00-6.00 Aorta Name Value Normal Ascending Aorta Sinus of Valsalva Diameter 4.1 cm 3.1-3.7 Sinus of Valsalva Index 2.07 cm/m2 1.50-1.90 Prox Asc Ao Diameter 3.2 cm 2.6-3.4 Prox Asc Ao Diameter Index 1.59 cm/m2 1.30-1.70 Thoracic Aorta Ao Arch Diameter 3.0 cm Desc Ao Peak Velocity 0.97 m/s Desc Ao Peak Gradient 4 mmHg Venous Name Value Normal IVC/SVC IVC Diameter (Insp 2D) 0.6 cm IVC Diameter (Exp 2D) 1.3 cm <=2.1 IVC Diameter Percent Change (2D) 49 % >=50 Aortic Valve Name Value Normal AV Doppler AV Peak Velocity 0.96 m/s <2.00 AV Area (Cont Eq Kyaw) 3.3 cm2 AV Area Index (Cont Eq Kyaw) 1.67 cm2/m2 AV V1/V2 Ratio 0.91 AV Regurgitation 2D LVOT Area 3.7 cm2 Ventricles Name Value Normal LV Dimensions 2D/MM IVS Diastolic Thickness (2D) 1.2 cm 0.6-1.0 LVID Diastole (2D) 4.1 cm 3.6-5.6 LVIW Diastolic Thickness (2D) 1.3 cm 0.6-1.0 LVID Systole (2D) 2.5 cm 2.5-4.0 LVOT Diameter 2.2 cm LV Mass (2D Cubed) 189.72 g 88.00-224.00 LV Mass Index (2D Cubed) 0.01 g/cm2 0.00-0.01 Relative Wall Thickness (2D) 0.64 LV Fractional Shortening/Ejection Fraction 2D/MM LV Fractional Shortening (2D) 40 % 25-43 LV Diastolic Volume (4C MOD) 70 ml LV Diastolic Volume (2C MOD) 91 ml LV Diastolic Volume (BP MOD) 79 ml 62-150 LV Diastolic Volume Index (BP MOD) 39.77 ml/m2 34.00-74.00 LV Systolic Volume (BP MOD) 26 ml 21-61 LV Systolic Volume Index (BP MOD) 13.28 ml/m2 11.00-31.00 LV EF (BP MOD) 70 % 57-68 LV SV (BP MOD) 52.83 ml RV Dimensions 2D/MM RV Basal Diastolic Dimension 3.9 cm 2.5-4.1 TAPSE 2.0 cm >=1.7 Atria Name Value Normal LA Dimensions LA Area (4C) 14.1 cm2 LA Length (4C) 5.7 cm LA Area (2C) 15.7 cm2 LA Length (2C) 4.9 cm LA Volume (4C A-L) 29.77 ml LA Volume (2C A-L) 42.79 ml LA Volume (BP A-L) 38 ml 18-58 LA Volume Index (BP A-L) 19.20 ml/m2 <=34.00 RA Dimensions RA Area (4C) 14.2 cm2 <=18.0 Final Signed by:DO Perkins Michelle L Signed (Electronic Signature):12/19/2023 8:45 a Social History Social History Type Response Tobacco Current some day smo ker 1 Smoking Status Never smoked cigaret sona Sex Male Sex Representation Male (finding) 1only smokes socially. Patient Care team information Care Team Personnel Name: DO Carroll Allison B Position: Physician - Family Med Member Role: Primary Care Provider Address: [address] [place] [address], [place] [address] Care Team Related Persons Name: RUBINA PERALTA
--- OUTSIDE RECORDS SUMMARY | 2024-01-23 02:37 | External Medical Summary | Continuity of Care Document ---
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(Final) - Disorder of thyroid, unspecified(Final) - Discharge Disposition: Home or Self Care Attending [...] puff, inhaled, q6h, Disp# 6.7 g, Pharmacy: [facility]/pharmacy #[id number] Start Date: 11/14/23 Status: Ordered Crestor 20 mg oral tablet Start: 10/14/23 1:03:00 PM EDT, 1 tab, PO, Daily, Disp# 90 tab, Refills: 3, Pharmacy: [facility]/pharmacy #[id number] Start Date: 10/14/23 Stop Date: 10/08/24 Status: Ordered multivitamin Start: 01/12/20 3:12:00 PM EST, 1 tab, PO, Daily Start Date: 01/12/20 Status: Ordered Nattokinase Start: 10/13/23 8:04:00 AM EDT, Nattokinase, 2,000 once a day Start Date: 10/13/23 Status: Ordered Tessalon Perles 100 mg oral capsule Start: 11/14/23 2:35:00 PM EDT, 1 cap, PO, tid, Disp# 30 cap, [facility]acy: [id number] Start Date: 11/14/23 Status: Ordered Problem [...] No gallstones or biliary ductal dilatation. Results Laboratory List Name Date C Reactive Protein, High Sensitivity (C REAC PROT,HI SENS) 11/24/23 Lipid Profile (LIPOPROTEINS) 11/24/23 Thyroid Stimulating Hormone (TSH) 4 Most recent to oldest [Reference Range]: 1 Non-HDL 214 mg/dL 1 (11/24/23 9:20 AM) C Reactive Prot, high sens 0.5 mg/L 2 (11/24/23 9:20 AM) Chol/HDL 5 (11/24/23 9:20 AM) Chol [125-200 mg/dL] 268 mg/dL *HI* (11/24/23 9:20 AM) HDL [>35 mg/dL] 54 mg/dL (11/24/23 9:20 AM) LDL Chol, Calculated [50-130 mg/dL] 175 mg/dL *HI* (11/24/23 9:20 AM) TG [<200 mg/dL] 197 mg/dL (11/24/23 9:20 AM) TSH [0.47-4.68 uIU/mL] 2.54 uIU/mL 3 (11/24/23 9:20 AM) 1Result Comment: Testing Performed By: [facility], [address] [place] [address] 2Result Comment: Classification for Cardiovascular Disease Risk Conventional and SI Units (mg/L). LOW <1.0 AVERAGE 1.0-3.0 HIGH >3.0-10.0 INDETERMINANT >10.0 3Result Comment: Testing Performed By: [facility], [address] [place] [address] Social History Social History Type Response Tobacco Current some day smo ker 1 Smoking Status Never smoked cigaret sona Sex Male Sex Representation Male (finding) 1only smokes socially. Patient Care team information Care Team Personnel Name: DO Carroll Allison B Position: Physician - Family Med Member Role: Primary Care Provider Address: [address] [place] [address] [place] Care Team Related Persons Name: RUBINA PERALTA
--- OUTSIDE RECORDS SUMMARY | 2024-01-23 02:37 | External Medical Summary | Continuity of Care Document ---
Author Name Unknown Organization [place] [address] [address] Address [address] [place], [place] [id number] Care Team Providers Care Statistical Modeler Name Role Phone Romina Carroll Primary Care Physician [phone] [id number] Date(s): 12/15/23 - 12/15/23 [facility] [address], [address] [place] [address] [phone] Discharge Disposition: Home or Self Care Attending [...] puff, inhaled, q6h, Disp# 6.7 g, Pharmacy: [facility]/pharmacy #[id number] Start Date: 11/14/23 Status: Ordered Crestor 20 mg oral tablet Start: 10/14/23 1:03:00 PM EDT, 1 tab, PO, Daily, Disp# 90 tab, Refills: 3, Pharmacy: [facility]/pharmacy #[id number] Start Date: 10/14/23 Stop Date: 10/08/24 Status: Ordered multivitamin Start: 01/12/20 3:12:00 PM EST, 1 tab, PO, Daily Start Date: 01/12/20 Status: Ordered Nattokinase Start: 10/13/23 8:04:00 AM EDT, Nattokinase, 2,000 once a day Start Date: 10/13/23 Status: Ordered Tessalon Perles 100 mg oral capsule Start: 11/14/23 2:35:00 PM EDT, 1 cap, PO, tid, Disp# 30 cap, [facility]acy: [id number] Start Date: 11/14/23 Status: Ordered Problem [...] polyp. No gallstones or biliary ductal dilatation. Social History Social History Type Response Tobacco Current some day smo ker 1 Smoking Status Never smoked cigaret sona Sex Male Sex Representation Male (finding) 1only smokes socially. Radiology * Contributor_system, MUSE01: VERIFY, PERFORM Event Display: Exercise Testing Authored Date: [id number] Please click on link to see image. Patient Care team information Care Team Personnel Name: DO Carroll Allison B Position: Physician - Family Med Member Role: Primary Care Provider Address: [address] [place] [address], [place] [address] [place] Care Team Related Persons Name: RUBINA PERALTA
--- OUTSIDE RECORDS SUMMARY | 2024-01-23 02:37 | External Medical Summary | Continuity of Care Document ---
Author Name Unknown Organization [address] [id number] Care Team Providers Care Molecular Geneticist Name Role Phone Romina Carroll Primary Care Physician [phone] [id number] Date[facility]s): 11/07/23 - 11/07/[address] [address] [phone] Encounter Diagnosis Pneumonia(Discharge Diagnosis) - 11/07/23 Discharge Disposition: Home or Self Care Attending Physician: DO Carroll Allison B Allergies, Adverse Reactions, Alerts No Known Allergies Assessment and Plan Extracted from: Title:Office Visit Note Author:DO Carroll Allis on B Date:11/07/23 1.Pneumonia Suspect PNA. Patient recently treated withamoxicillin. Had a long discussion with patient andreolimend treatment. He states that he is having difficulty breathing and recommend [facility] emergency room for evaluation andimaging. Suspect pneumonia. Follow up in the office post ER. Immunizations Given and Recorded Vaccine Date Status Refusal Reason SARS-CoV-2 (COVID-19) mRNA-1273 vaccine 1 02/23/21 Recorded SARS-CoV-2 (COVID-19) mRNA BNT-162b2 vax 2 06/17/20 Recorded SARS-CoV-2 (COVID-19) mRNA BNT-162b2 vax 3 05/27/20 Recorded influenza virus vaccine, inactivated 12/19/19 Boyd rded 1Result Comment: 2021-06-05: Historical information-source unspecified 2Result Comment: 2021-06-05: Historical information-source unspecified 3Result Comment: 2021-06-05: Historical information-source unspecified Medications Crestor 20 mg oral tablet Start: 10/14/23 1:03:00 PM EDT, 1 tab, PO, Daily, Disp# 90 tab, Refills: 3, Pharmacy: [facility]/pharmacy #[id number] Start Date: 10/14/23 Stop Date: 10/08/24 Status: Ordered multivitamin Start: 01/12/20 3:12:00 PM EST, 1 tab, PO, Daily Start Date: 01/12/20 Status: Ordered Nattokinase Start: 10/13/23 8:04:00 AM EDT, Nattokinase, 2,000 once a day Start Date: 10/13/23 Status: Ordered Mental Status 11/07/23 Barriers to Learning one year None evide nt Mandatory Health Literacy Documentation Yes Health Literacy Communication Barriers N ever Primary Language Sami Problem List Condition Confirmation Course Effective Dates Status H ealth Status Informant Transaminitis Confirmed Active Exposure to hepatitis B Confirmed Active Hearing problem Confirmed Active HLD (hyperlipidemia) Confirmed Active Mild obstructive sleep apnea Confirmed Active Body mass index [BMI] 26.0-26.9, adult Confirmed Active Pneumonia Confirmed Active Gallbladder polyp Confirmed Active Diagnosis Diagnosis Type Effective Dates Health Status Clini robert Service Informant Pneumonia Discharge Diagnosis 11/07/23 Non-Specified Procedures Procedure Date Related Diagnosis Body Site Status US - Ultrasound Abdomen 1 07/04/21 Completed Ultrasound scan of abdomen, right upper quadrant and epigastrium 2 01/28/20 Completed 1Stable size of the 5 mm gallbladder polyp. No cholelithiasis No biliary ductal dilation 2Impression: 5 mm echogenic nonmobile focus adherent to the gallbladder wall. This favors a polyp. No gallstones or biliary ductal dilatation. Vital Signs Most recent to oldest [Reference Range]: 1 Patient Weight 81.7 kg (11/07/23 10:12 AM) Temperature [36.5-37.9 DegC] 38.3 DegC *HI* (11/07/23 10:12 AM) Heart Rate 113 bpm (11/07/23 10:12 AM) Respiratory Rate 19 br/min (11/07/23 10:12 AM) Blood Pressure 130/78mmHg (11/07/23 10:12 AM) Cuff Pulse Pressure 52 mmHg (11/07/23 10:12 AM) Social History Social History Type Response Tobacco Current some day smo ker 1 Smoking Status Never smoked cigaret sona Sex Male Sex Representation Male (finding) 1only smokes socially. [facility] Outpt Note * DO Carroll Allison B: PERFORM Event Display: [facility] Outpt Note Authored Date: Chief Complaint Nasal and chest congestion, productive cough and sore throat X 2 weeks. Tested positive for Strep on 10/25/23 at [place] [facility] and was prescribed 10 days of amoxicillin. States throat pain is better but still has persistent cough and congestion History of Present Illness Patient is a 43 year old male that presents to the office for an acute visit. Hewas last in theofficeSeptember3.He wasdiagnosed witha viralURI.Hissymptomswjose luis wasstarted [id number] mgBID byurgent careonSeptember7. They have shortness of breath, and difficulty taking a deep breath in. He feels that hishas moved to his lungs. He has positive fever. He has been trying avsh-jfw-gfnzjtc medications without relief. No swelling in his feet. No recent travel. Review of Systems Constitutional: No fever, No chills, No fatigue._ Respiratory: No shortness of breath, No cough, No wheezing. _ Cardiovascular: no lightheadedness/presyncope, No chest pain, No palpitations._ Gastrointestinal: No nausea, No vomiting, No diarrhea, No constipation, No heartburn, No abdominal pain._ Musculoskeletal: No back pain, No neck pain, No joint pain, No muscle pain, No decreased range ofmotion, No trauma._ Skin: No rash, No pruritus, No breakdown._ Neurologic:No abnormal balance, No numbness, No tingling, No headache._ Physical Exam Vitals & Measurements T:38.3C HR:113(Monitored) RR:19 BP:130/78 SpO2:94% WT:81.7kg WT:81.700kg(Dosing) PHQ2 Data(Data Documented on:11/07/2023 10:12) Emotional health assessment NEGATIVE General: _Alert and oriented, No acute distress HEENT: _ Normocephalic, TM clear, Nl gross hearing, moist oral mucosa _ Cardiovascular: _Normal rate, Regular rhythm, No murmur, No gallop. Respiratory: _Lungs are clear to auscultation, Respirations are non-labored, Breath sounds are equal Gastrointestinal: _Soft, Non-tender, Non-distended, Normal bowel sounds. Musculoskeletal: _Normal range of motion,normal strength. Neurologic:Normal sensory, Normal motor function, CN II-XII grossly intact. Integumentary: _Warm, Dry, [place]. Psych: Mood-affect congruence. Reports no SI/HI. Speech is of normal pace and content Assessment/Plan 1.Pneumonia Suspect PNA. Patient recently treated withamoxicillin. Had a long discussion with patient margarethedyta garrison. He states that he is having difficulty breathing and recommend [facility] emergency room for evaluation andimaging. Suspect pneumonia. Follow up in the office post ER. Problem List/Past Medical History Ongoing Body mass index [BMI] 26.0-26.9, adult Exposure to hepatitis B Gallbladder polyp Hearing problem HLD (hyperlipidemia) Mild obstructive sleep apnea Pneumonia Transaminitis Procedure/Surgical History US - Ultrasound Abdomen| Service Date: 07/04/2021Ultrasound scan of abdomen, right upper quadrant and epigastrium| Service Date: 01/28/2020 Medications multivitamin, 1 tab, PO, Daily rosuvastatin(Crestor 20 mg oral tablet), 20 mg= 1 tab, PO, Daily, 3 refills unlisted medication(Nattokinase) Allergies NKA Social History Smoking Status Never smoked cigarettes Alcohol Use:Current Type:Beer, Wine, Liquor Frequency:1-2 times per week Employment/School Status:Employed Exercise Duration (average number of minutes):60 Times per week:3-4 times/week Home/Environment Lives with:Children, Spouse Substance Abuse - Denies Substance Abuse Tobacco - Low Risk Use:Current some day smoker - Comments: only smokes socially. Family History Breast cancer: Mother. Coronary artery disease: Father. Hyperlipidemia: Father. Health Status Family Member(s) Immunizations Vaccine Date Status SARS-CoV-2 (COVID-19) mRNA-1273 vaccine 02/23/2021 Recorded Comments : 2021-06-05: Historical information-source unspecified SARS-CoV-2 (COVID-19) mRNA BNT-162b2 vax 06/17/2020 Recorded Comments : 2021-06-05: Historical information-source unspecified SARS-CoV-2 (COVID-19) mRNA BNT-162b2 vax 05/27/2020 Recorded Comments : 2021-06-05: Historical information-source unspecified influenza virus vaccine, inactivated 12/2019 Recorded Recommendations Health Maintenance Pending(in the next year) OverDue Adult Influenza Vaccine due08/17/23and every 1year Due Adult COVID-19 Vaccination due11/07/23Unknown Frequency Adult Social Determinants of Health Screening due11/07/23Unknown Frequency Adult Tdap/Td Vaccine due11/07/23Unknown Frequency Pneumococcal Vaccine Adults and Adolescents with Chronic Illness due11/07/23One-time only Satisfied(in the past 1 year) Satisfied Body Mass Index on09/11/23.Satisfied by MELINDA Magaña Sharon Hepatitis C Screening on09/12/23.Satisfied by Contributor_system, QUEST_AMB Electronic Signature on File Electronically Reviewed/Signed by: Romina Carroll DO Author Signature Dt/Tm:11/07/2023 02:11 PM Department of Family Medicine [facility] Patient Care team information Care Team Personnel Name: DO Carroll Allison B Position: Physician - Family Med Member Role: Primary Care Provider Address: [address] [place] [address], [place] [address] [place] Care Team Related Persons Name: RUBINA PERALTA"
--- OUTSIDE RECORDS SUMMARY | 2024-01-23 02:37 | External Medical Summary | Continuity of Care Document ---
Author Name Unknown Organization [address] [id number] Care Team Providers Care School Psychology Professor Name Role Phone Romina Carroll Primary Care Physician [phone] Encounter [facility] [id number] Date(s): 11/14/23 - 11/14/[address] [id number] [phone] Discharge Disposition: Home or Self Care Attending Physician: CLARE Romo Danielle B Allergies, Adverse Reactions, Alerts No Known [...] puff, inhaled, q6h, Disp# 6.7 g, Pharmacy: [id number] Start Date: 11/14/23 Status: Ordered Crestor 20 mg oral tablet Start: 10/14/23 1:03:00 PM EDT, 1 tab, PO, Daily, Disp# 90 tab, Refills: 3, Pharmacy: [id number] Start Date: 10/14/23 Stop Date: 10/08/24 Status: Ordered multivitamin Start: 01/12/20 3:12:00 PM EST, 1 tab, PO, Daily Start Date: 01/12/20 Status: Ordered Nattokinase Start: 10/13/23 8:04:00 AM EDT, Nattokinase, 2,000 once a day Start Date: 10/13/23 Status: Ordered Tessalon Perles 100 mg oral capsule Start: 11/14/23 2:35:00 PM EDT, 1 cap, PO, tid, Disp# 30 cap, Pharmacy: [id number] Start Date: 11/14/23 Status: Ordered Mental Status 11/14/23 Barriers to Learning one year None evide nt Mandatory Health Literacy Documentation Yes Health Literacy Communication Barriers N ever Primary Language Azeri Problem List Condition Confirmation Course Effective Dates [...] to oldest [Reference Range]: 1 Patient Weight 80.0 kg (11/14/23 2:17 PM) Heart Rate 80 bpm (11/14/23 2:17 PM) Respiratory Rate 18 br/min (11/14/23 2:17 PM) Blood Pressure 110/68mmHg (11/14/23 2:17 PM) Cuff Pulse Pressure 42 mmHg (11/14/23 2:17 PM) Social History Social History Type Response Tobacco Current some day smo ker 1 Smoking Status Never smoked cigaret sona Sex Male Sex Representation Male (finding) 1only smokes socially. Patient Care team information Care Team Personnel Name: DO Carroll Allison B Position: Physician - Family Med Member Role: Primary Care Provider Address: [address] [place] [address] [place] Care Team Related Persons Name: RUBINA PERALTA
== END 2024-01-22 17:52 | disposition home or self-care (01) | DRG 698 ==
LOC: ED 15:30 → SUATTDRO 21:53 → 2W 21:53
DX: N17.9 Acute kidney failure, unspecified; J90 Pleural effusion, not elsewhere classified; E87.70 Fluid overload, unspecified; E87.1 Hypo-osmolality and hyponatremia; Z87.891 Personal history of nicotine dependence; Z11.52 Encounter for screening for COVID-19; R18.8 Other ascites; N04.9 Nephrotic syndrome with unspecified morphologic changes; N18.9 Chronic kidney disease, unspecified; E78.5 Hyperlipidemia, unspecified; E88.09 Other disorders of plasma-protein metabolism, not elsewhere classified; J18.9 Pneumonia, unspecified organism